=== PATIENT | male | born 1945 | race Caucasian/White ===

== ENCOUNTER → 2016-06-17 09:30 | Outpatient (CLI) | payer MEDICARE | END | disposition home or self-care (01) | LOC: D.CT 09:30 | DX: R91.1 Solitary pulmonary nodule (principal); R05 Cough ==

== ENCOUNTER → 2019-07-07 07:49 | Outpatient (CLI) | payer BC ==
--- NOTE | ~2019-07-07 | ST ---
PATIENT:CARLOS ARANGO MEDICAL RECORD: [id number] SEX: M LOCATION:[facility] ORDER #: ADMISSION DATE: 07/07/19 AGE OF PATIENT: 73 REFERRING PHYSICIAN: INTERPRETING PHYSICIAN: JUSTYN BARON MD DATE OF SERVICE: 07/07/2019 PROCEDURE: Nuclear stress test. INDICATION: Angina, shortness of breath, and paroxysmal atrial fibrillation. He was exercised on standard Lexiscan protocol with 33 mCi of sestamibi injected at peak stress, 11 mCi used previously for rest images. FINDINGS: Gated SPECT reveals a decreased ejection fraction of 43% with decreased thickening and brightening throughout the inferior segments. SPECT imaging Cardiolite was used as myocardial perfusion agent. There is a mixed perfusion defect inferiorly and apically, it is partially fixed, partially reversible, but there is reversibility throughout the entire inferior and apical segments that includes the basal, mid, apical, inferior segments as well as the apex itself. OVERALL IMPRESSION: This is an abnormal nuclear stress test with intermediate risk with reversible ischemia inferiorly and apically suggestive of hemodynamically significant coronary artery disease. TRANSINT:[id number] Voice Confirmation ID: [id number] DOCUMENT ID: [id number] JUSTYN BARON MD CC: PONCHO BUTCHER MD [id number] DICTATION DATE: 07/08/19 1254 NOUGAT CUTTER MACHINE: 07/08/192111 DEP CLI 07/07/19 [id number] [place] [address]
--- NOTE | 2019-07-08 13:17 | EC ---
PATIENT:CARLOS ARANGO DATE OF SERVICE: 07/07/19 SEX: M MEDICAL RECORD: [id number] DATE OF : 49 LOCATION:[facility] AGE OF PATIENT: 73 ADMISSION DATE: 07/07/19 REFERRING PHYSICIAN: INTERPRETING PHYSICIAN: JUSTYN JULIEN MD ECHOCARDIOGRAM REPORT ECHO CHARGES 4 ECHO COMPLETE Date: 07/07/19 CLINICAL DIAGNOSIS: SYKES H/O A-FIB ECHOCARDIOGRAPHIC MEASUREMENTS (adult normal given) AC root (d.<3.7cm) 3.6 cm LV Septum d (<1.2 cm> 1.2 cm Valve Excursion 2.0 cm LV Septum (systole) 1.8 cm Left Atria (s.<4.0cm> 5.3 cm LVPW d(<1.2cm) 1.2 cm RV (d.<2.3cm) 2.7 cm LVPW (sytole) 1.7 cm LV diastole(<5.6CM) 6.3 cm MV E-F(>70mm/sec) cm LV systole 4.4 cm LVOT Diameter 2.0 cm MV exc.(>10mm) cm Est.ejection fraction (50-75%) % DOPPLER: LVIT cm/sec A 49.0 cm/sec E 65.0 cm/sec LA cm/sec RVSP 40.0 mmHg LVOT 61.0 cm/sec AOP1/2T m/s Asc. Ao 122 cm/sec RVOT 46.0 cm/sec RA cm/sec PA 64.0 cm/sec AV Gradient Peak 5.9 mmHg AV Mean 3.1 mmHg AV Area 1.7 cm MV Gradient Peak 2.5 mmHg MV Mean 0.92 mmHg MV Area cm COMMENTS: OP - HC Animal Cytologist: 1 LAURIE TAMPA Import/Export Administrator: 1 Dr. Julien TAPE# PACS Pericardial Effusion N DATE OF SERVICE: ECHOCARDIOGRAM FINDINGS: 1. Left ventricular chamber size is mildly dilated. Left ventricular systolic function is preserved at 55% to 60%. 2. Left atrium is enlarged at 5.3 cm. Right atrium and right ventricular chamber sizes are as well mildly dilated. 3. Valvular structures have normal structure and motion. ECHOCARDIOGRAM REPORT [id number] CARLOS ARANGO 4. Doppler interrogation reveals mild aortic insufficiency, moderate mitral regurgitation, trace tricuspid regurgitation, no other valvular insufficiency or stenosis. Pulmonary systolic pressure estimated at 40 mmHg. 5. No evidence of pericardial effusion or left ventricular thrombus. TRANSINT:[id number] Voice Confirmation ID: [id number] DOCUMENT ID: [id number] JUSTYN JULIEN MD at 1317 CC: [id number] DICTATION DATE: 07/08/19 1106 TECHNOLOGY TRAINER: 07/08/19 1302 DEP CLI 07/07/19 [id number] [place] [address]
== END | disposition home or self-care (01) ==
LOC: D.HCCECHO 07:49
PROVIDERS: ATTEND Internal Medicine Interventional Cardiology
DX: I48.91 Unspecified atrial fibrillation (principal); I25.10 Atherosclerotic heart disease of native coronary artery without angina pectoris

== ENCOUNTER 2019-07-19 11:05 | Outpatient (CLI) | payer BC ==
[~2019-07-19] VITALS: Ht 167.6 cm; Wt 69.4 kg
--- NOTE | ~2019-07-19 | OP ---
PATIENT NAME: CARLOS ARANGO MEDICAL RECORD: [id number] :49 LOCATION:[facility] ADMISSION DATE: SURGEON: AURELIA JAMES MD DATE OF OPERATION: 07/19/2019 PROCEDURE: Left heart catheterization, selective coronary angiography, right radial approach. CATHETERS: Radial sheath, [place] catheter. The procedure was well tolerated. The patient returned to lyn. Sheath was removed. TR band was placed. FINDINGS: Left ventriculography in 30-degree LOWE view shows global hypokinesis with reduced EF 20% to 25%. CORONARY ANATOMY: LEFT MAIN: Left main is free of disease. LAD: Has about 70% stenosis in its distal third. CIRCUMFLEX: This is a left dominant system with the left giving rise to PDA, OM2 has a tight stenosis of 90% somewhat diffuse. RIGHT CORONARY ARTERY: Has about 70% to 80% stenosis; however, this is a rudimentary vessel. ASSESSMENT AND PLAN: Intervention to the OM momentarily. DESCRIPTION OF PROCEDURE: Using indwelling sheath, XB LAD guiding catheter provided excellent guide catheter support followed by 300 cm. A [place] wire was placed across the tightly occluded OM down this portion of vessel. Pre-deployment balloon used was 2.5 x 15 [place] balloon up to 8 atmospheres. The stent deployed was a 3.0 x 18 mm Integrity nondrug eluting stent to 14 atmospheres. Final angiography shows excellent resolution of 90% stenosis, no significant residual. BRANDON flow was 3 throughout the procedure. Heparin and Integrilin were used during the case. Plavix was loaded in the lab. He will be restarted back on his Xarelto. I suspect his myopathy may be tachycardia mediated and would proceed with cardioversion before intervention of the LAD, addition of Aldactone, Plavix and digoxin right now. We will need statin at a later date. TRANSINT:[id number] Voice Confirmation ID: [id number] DOCUMENT ID: [id number] AURELIA JAMES MD CC: [id number] DICTATION DATE: 07/19/19 1459 COMBER FIXER: 07/19/19 2310 DEP CLI 07/19/19 [facility] [address] [id number]
--- NOTE | ~2019-07-19 | HEMODYNAMI ---
PATIENT:CARLOS ARANGO MEDICAL RECORD: [id number] : 49 LOCATION:[facility] ADMISSION DATE: 07/19/19 Generatedon:07/19/201914:59 Patient name: CARLOS ARANGO Patient #: [id number] SSN: : 1945 Date of study: 07/19/2019 Page: Of Hemodynamic Procedure Report Patient Data Patient Demographics Procedure consent was obtained First Name: CARLOS Gender: Male Last Name: CONCHITA : 1945 Patient #: [id number] Age: 73 year(s) Race: Unknown Additional ID: [id number] Contact details [address]: [address] [place] [address] State: [place] City: [place] Zip code: [address] Past Medical History Performed procedures and imaging results Date Procedure Procedure Results Comments Stress testing Positive->Intermediate with SPECT MPI risk Allergies: No known allergies Admission Admission Data Admission Date: 07/19/2019 Admission Time: 11:05 Arrival Date: 07/19/2019 Arrival Time: 0:00 Height (in.): 65.75 BSA: 1.78 (m2) Height (cm.): 167 BMI: 24.74 (kg/m2) Weight (lbs.): 152.12 Weight (kg.): 69 Lab Results Lab Result Date: 07/19/2019 Lab Result Time: 0:00 Biochemistry Name Units Result Min Max BUN mg/dl 20 --(----)*- 7 18 Creatinine mg/dl 0.9 --(-*--)-- 0.6 1.3 eGFR ml/min 88.77126 -*(----)-- 90 120 NONAFRICAN CBC Name Units Result Min Max Hematocrit % 46 --(-*--)-- 42 54 Hemoglobin g/dl 15.1 --(-*--)-- 13.5 17.5 Procedure Procedure Types Cath Procedure Diagnostic Procedure [facility] w/Coronaries Sedation Charges Moderate Sedation up to 30 minutes PCI Procedure Coronary Stent Coronary Stent Initial Hemochron ACT Test Procedure Description Procedure Date Procedure Date: 07/19/2019 Procedure Start Time: 14:20 Procedure End Time: 14:57 Procedure Staff Name Function Karson Buitrago MD Performing Physician Lito Sanders RN Nurse Jim Muhammad RT Scrub Marry Montenegro RT Monitor Indication Atrial fibrillation Procedure Data Cath Procedure Fluoroscopy Diagnostic fluoroscopy Total fluoroscopy Time: 14 time: 14 min min Diagnostic fluoroscopy Total fluoroscopy dose: dose: 1128 mGy 1128 mGy Contrast Material Contrast Material Type Amount (ml) Isovue 300 101 Entry Location Entry Primary Successful Side Size Upsize Upsize Entry Closure Medrano ccessful Closure Location (Fr) 1 (Fr) 2 (Fr) Remarks Device Remarks Radial Right 6 Fr Mechanical artery Short Compression Estimated blood loss: 10 ml Diagnostic catheters Device Type Used For End Catheter Placement DIAGNOSTIC [place] 110cm 5 Procedure Fr catheter ([id number]) Procedure Complications No complications Procedure Medications Medication Administration Route Dosage Oxygen etCO2 Nasal cannula 2 l/min Heparin Flush Bag added to field 2 bags (1000units/500ml NS) Lidocaine 2% added to field 20 Radial Cocktail added to field 1 syringe (Verapamil 2mg/Nitro 400mcg/Heparin 1500units) Fentanyl I.V. 50 mcg Versed I.V. 1 mg Fentanyl I.V. 50 mcg Versed I.V. 1 mg Radial Cocktail I.A. 1 syringe (Verapamil 2mg/Nitro 400mcg/Heparin 1500units) Heparin Bolus I.V. 4000 units Digoxin I.V. 0.5 mg Integrilin (Bolus I.V. 6.2 ml 2mg/ml) Integrilin (Bolus wasted 3.8 ml 2mg/ml) Fentanyl I.V. 50 mcg Plavix P.O. 600 mg Hemodynamics Rest BSA: 1.78 (m2) HGB: 15.1 (g/dl) O2 Consumption: Estimated: 245.47 (ml/min) O2 Co nsumption indexed: Estimated:137.9 (ml/min/m) Heart Rate: 129 (bpm) Pressure Samples Time Site Value (mmHg) Purpose Heart Use Rate(bpm) 14:23 LV 87/38,14 Snapshot 159 14:23 LV 82/29,15 Snapshot 151 Gradients Valve Time Site Site Mean SEP/DFP Peak To Heart Use 1 2 (mmHg) (sec/min) Peak Rate (mmHg) (bpm) Aortic 14:23 LV AO 145 Snapshots Pre Cath Intra NCS Post Cath Vital Signs Time Heart Resp SPO2 etCO2 NIBP (mmHg) Rhythm Pain Sedation Rate (ipm) (%) (mmHg) Status Level (bpm) 14:08:14 123 16 97 20.2 94/83(91) A-Fib 0 (11) 10(A) , No pain 14:13:00 107 16 97 32.2 104/79(98) A-Fib 0 (11) 10(A) , No pain 14:17:00 149 17 95 0 110/81(92) A-Fib 0 (11) 10(A) , No pain 14:21:02 161 16 95 0 101/72(85) A-Fib 0 (11) 9(A) , No pain 14:25:03 147 17 93 0 106/68(95) A-Fib 0 (11) 9(A) , No pain 14:29:01 141 17 94 0 115/87(110) A-Fib 0 (11) 9(A) , No pain 14:33:07 151 16 96 0 106/75(98) A-Fib 0 (11) 9(A) , No pain 14:37:06 138 16 95 0 99/78(88) A-Fib 0 (11) 9(A) , No pain 14:41:04 136 16 96 0 113/79(99) A-Fib 0 (11) 9(A) , No pain 14:45:04 130 17 98 0.7 97/87(92) A-Fib 0 (11) 9(A) , No pain 14:48:59 107 16 96 0 100/81(92) A-Fib 0 (11) 9(A) , No pain 14:52:53 116 16 97 24.7 109/93(99) A-Fib 0 (11) 9(A) , No pain Medications Time Medication Route Dose Verified Delivered Reason Not es Effectiveness by by 14:10:06 Oxygen etCO2 2 l/min Karson Morse Per physician Nasal St Sukhdev Sanders RN cannula 14:10:16 Heparin Flush added 2 bags Karson Morse used for Bag to [facility] Sukhdev Sanders RN procedure (1000units/500ml field CHUNG NS) 14:10:25 Lidocaine 2% added 20ml Karson Morse for local to vial St Sukhdev Sanders RN anesthetic field CHUNG 14:10:39 Radial Cocktail added 1 Karson Lito used for (Verapamil to syringe [facility] Sukhdev Sanders RN procedure 2mg/Nitro field CHUNG 400mcg/Heparin 1500units) 14:14:39 Fentanyl I.V. 50 mcg Karson Claytony for sedation St Sukhdev Sanders RN, MD 14:14:46 Versed I.V. 1 mg Karson Lito for sedation St Sukhdev Sanders RN, MD 14:16:50 Fentanyl I.V. 50 mcg Karson Claytony for sedation [facility] Sukhdev Sanders RN, MD 14:16:53 Versed I.V. 1 mg Karson Lito for sedation St Sukhdev Sanders RN, MD 14:20:42 Radial Cocktail I.A. 1 Karson Karson for (Verapamil syringe [place] [facility] vasodilation 2mg/Nitro MD CHUNG 400mcg/Heparin 1500units) 14:29:37 Heparin Bolus I.V. 4000 K[address] for units [facility] Sukhdev Sanders RN anticoagulation 14:29:53 Digoxin I.V. 0.5 mg Karson Morse Per physician St Sukhdev Sanders RN, MD 14:32:06 Integrilin I.V. 6.2 ml Karson Morse for (Bolus 2mg/ml) St Sukhdev Sanders RN anticoagulation 14:35:25 Integrilin wasted 3.8 ml Karson Morse for (Bolus 2mg/ml) [facility] Sukhdev Sanders RN anticoagulation 14:43:56 Fentanyl I.V. 50 mcg Karson Morse for sedation St Sukhdev Sanders RN, MD 14:54:33 Plavix P.O. 600 [address] for [facility] Sukhdev Sanders RN antiplatelet therapy Procedure Log Time Note 13:50:58 Informed consent obtained and on chart 13:51:46 Procedure Status Elective Heart Cath (OP). 13:51:47 Lito Sanders RN sent for patient. Start room use. 13:51:48 Time tracking: Regular hours (M-F 7:00 - 5:00) 13:51:51 Plan of Care:Hemodynamics will remain stable., Cardiac rhythm will remain stable., Comfort level will be maintained., Respiratory function will remain adequate., Patient/ family verbilizes understanding of procedure., Procedure tolerated without complication., Recovers from procedure without complications.. 13:52:02 H&P Date Dictated: 06/27/2019 Within 30 days and on chart., H&P Addendum completed by physician on day of procedure. (MUST COMPLETE FOR ALL OUTPATIENTS). 13:52:10 Patient allergic to No known allergies 13:53:52 Lab Result : BUN 20 mg/dl 13:53:52 Lab Result : Creatinine 0.9 mg/dl 13:53:52 Lab Result : eGFR NONAFRICAN 88.15811 ml/min 13:53:52 Lab Result : Hemoglobin 15.1 g/dl 13:53:52 Lab Result : Hematocrit 46 % 13:54:09 Stress Test: yes; abnormal INFERIOR AND APICALLY 13:54:23 Patient Weight : 152.12 lbs 13:54:25 Patient Height : 65.75 inches 13:54:29 Arrival Date: 07/19/2019 12:00:00 AM 13:56:33 Indication : Atrial fibrillation 14:07:17 Patient received from Pre/Post Procedure Room to CCL 1 Alert and oriented. Tansferred to table in Supine position. 14:07:18 Warm blankets applied, and feliberto hugger turned on for patient comfort. 14:07:18 Correct patient and procedure confirmed by team. 14:07:19 ECG and BP/O2 sat monitors applied to patient. 14:07:20 Vital chart was started 14:07:24 Rhythm: atrial fibrillation 14:07:25 Full Disclosure recording started 14:07:25 Pre-procedure instructions explained to patient. 14:07:26 Pre-op teaching completed and patient verbalized understanding. 14:07:27 Family unavailable. 14:07:31 Patient NPO since Midnight. 14:07:33 Is the patient allergic to Iodine/contrast media? No. 14:07:34 Is patient on blood thinner?Yes 14:07:49 PT. STATES LAST DOSE OF XARELTO A FEW DAYS AGO 14:07:51 Patient diabetic? No. 14:07:55 Previous problem with sedation/anesthesia? No ? 14:08:12 Snore? Yes 14:08:14 Sleep apnea? No 14:08:14 Deviated septum? No 14:08:15 Opens mouth fully? Yes 14:08:16 Sticks out tongue? Yes 14:08:55 Airway obstruction? No ? 14:08:58 Dentures? Yes OUT 14:09:00 Pre procedure: right dorsailis pedis pulse 1+ Palpable, but thready & weak; easily obliterated 14:09:02 Modified Jose's test Ulnar < 7 seconds 14:09:07 Patient pain scale 0/10 ?. 14:09:11 IV patent on arrival in left hand with 0.9% NaCl at [facility]. 14:09:13 Lab results completed and on chart. 14:09:18 Right Radial & Right Groin area was prepped with chlora-prep and draped in sterile fashion 14::19 Sharps counted by scrub and verified by R.N. 14:: Alarms reviewed by R. N. 14:10:06 Oxygen 2 l/min etCO2 Nasal cannula was administered by Lito Sanders RN; Per physician; Verbal order read back and verified. 14:10:16 Heparin Flush Bag (1000units/500ml NS) 2 bags added to field was administered by Lito Sanders RN; used for procedure; Verbal order read back and verified. 14:10:25 Lidocaine 2% 20ml vial added to field was administered by Lito Sanders RN; for local anesthetic; Verbal order read back and verified. 14:10:39 Radial Cocktail (Verapamil 2mg/Nitro 400mcg/Heparin 1500units) 1 syringe added to field was administered by Lito Sanders RN; used for procedure; Verbal order read back and verified. 14:11:19 Use device set Radial Dx or PCI 14:11:20 ACIST Syringe (24906) opened to sterile field. 14:11:20 Medline Cath Pack ([id number]) opened to sterile field. 14:11:21 Bag Decanter () opened to sterile field. 14:11:22 ACIST Hand Control (98494) opened to sterile field. 14:11:22 ACIST Manifold (29011) opened to sterile field. 14:11:22 Tegaderm 4 x 4 (1626W) opened to sterile field. 14:11:23 MBrace Wrist Support ([id number]) opened to sterile field. 14:11:24 EMERALD Guide Wire (897-653) opened to sterile field. 14:11:25 SHEATH 6FR RAIN (3452026) opened to sterile field. 14:11:31 Baseline sample Acquired. 14:13:21 --------ALL STOP TIME OUT------ 14:13:22 Final Timeout: patient, procedure, and site verified with staff and physician. All members of the team are in agreement. 14:13:23 Right Radial & Right Groin site verified by team. 14:13:26 Fire Safety Assessment: A--An alcohol-based skin anteseptic being used preoperatively., C--Open oxygen or nitrous oxide is being used., D--An ESU, laser, or fiber-optic light is being used. 14:13:31 Physical assessment completed. ASA score P 2 - A patient with mild systemic disease as per Karson Buitrago MD. 14:13:34 2) 60-89 Mildly reduced kidney function, and other findings (as for stage 1) point to kidney disease. 14:13:37 Maximum allowable contrast dose (3.7 X eGFR X 0.75)244 ml. 14:13:39 Sedation plan: IV Moderate Sedation Medication:Versed, Fentanyl 14:14:39 Fentanyl 50 mcg I.V. was administered by Lito Sanders RN; for sedation; Verbal order read back and verified. 14:14:46 Versed 1 mg I.V. was administered by Lito Sanders RN; for sedation; Verbal order read back and verified. 14:16:50 Fentanyl 50 mcg I.V. was administered by Lito Sanders RN; for sedation; Verbal order read back and verified. 14:16:53 Versed 1 mg I.V. was administered by Lito Sanders RN; for sedation; Verbal order read back and verified. 14:16:54 Zero performed for pressure channel P1 14:19:55 Zero performed for pressure channel P1 14:20:01 Procedure started. 14:20:07 Local anesthetic to right radial artery with Lidocaine 2% by Karson Buitrago MD.INITIAL ACCESS ONLY 14:20:42 Radial Cocktail (Verapamil 2mg/Nitro 400mcg/Heparin 1500units) 1 syringe I.A. was administered by Karson Buitrago MD; for vasodilation; Verbal order read back and verified. 14:20:47 A 6 Fr Short sheath was inserted into the Right Radial artery 14:21:17 A DIAGNOSTIC [place] 110cm 5 Fr catheter ([id number]) was advanced over the wire and used for Procedure. 14:22:47 LV gram done using LOWE 14:22:49 Injector settings: Ml/sec: 5, Volume: 15, 14:23:14 LV hemodynamics recorded. 14:23:27 EF : 25 % 14:23:54 RCA angiography performed. 14:26:12 LCA angiography performed. 14:: Catheter exchanged over wire. 14::38 Proceeding to intervention. 14:29:25 GUIDE 6FR XBLAD 3.5 catheter ([id number]) opened to sterile field. 14:29:25 WHISPER 300cm guide wire ([id number]) opened to sterile field. 14:29: INFLATOR Merit BasixCompak (UI0397) opened to sterile field. 14:29:37 Heparin Bolus 4000 units I.V. was administered by Lito Sanders RN; for anticoagulation; Verbal order read back and verified. 14:29:45 Pre PCI Site: [place] [facility] has 90% stenosis. 14:29:50 6 Fr XBLAD 3.5 guide catheter was inserted over the wire 14::53 Digoxin 0.5 mg I.V. was administered by Lito Sanders RN; Per physician; Verbal order read back and verified. 14:31:04 ACC Pre-intervention BRANDON Flow is 2. 14:31:20 WHISPER 300 wire advanced. 14:32:06 Integrilin (Bolus 2mg/ml) 6.2 ml I.V. was administered by Lito Sanders RN; for anticoagulation; Verbal order read back and verified. 14:35:25 Integrilin (Bolus 2mg/ml) 3.8 ml wasted was administered by Lito Sanders RN; for anticoagulation; Verbal order read back and verified. 14:39:14 UNABLE TO CROSS LESION WITH WHISPER. 14:39:25 Asahi Minamo 300cm wire opened to sterile field. 14:39:40 MINAMO 300 ADVANCED 14:43:56 Fentanyl 50 mcg I.V. was administered by Lito Sanders RN; for sedation; Verbal order read back and verified. 14:45:31 Wire advanced across lesion. 14:45:46 ACT drawn and resulted at OUT OF RANGE seconds. (normal therapeutic range 180-240 seconds). 14:46:31 Inflate balloon Inflation number: 1 A EMERGE OTW 2.5 x 15 balloon ([id number]) was prepped and advanced across the Mid CX , then inflated to 12 CLAYTON for 0:00 (min:sec) . 14:46:45 Balloon removed over the wire. 14:49:19 Place stent Inflation Number: 2 A INTEGRITY RX 3.0 x 18 stent ([id number]) was prepped and advanced across the Mid CX . The stent was deployed at 14 CLAYTON for 0:15 (min:sec) . 14:49:24 Stent catheter was removed intact over wire. 14:49:41 Wire removed. 14:49:42 Guide catheter removed. 14:49:46 TR BAND Standard ([id number]) opened to sterile field. 14:50:13 Sheath removed intact; hemostasis achieved with Mechanical Compression to the Right Radial artery. 14:50:21 Procedure ended.(Physican Out) 14:51:48 Fluoroscopy time 14.00 minutes. 14:51:53 Fluoroscopy dose: 1128 mGy 14:51:53 Flurop Dose total: 1128 14:52:03 Dose Area Product 30876 mGy/cm. 14:52:07 Contrast amount:Isovue 300 101ml. 14:52:10 Maximum allowable dose exceeded? No. 14:52:11 Sharps counted by scrub and verified by R.N. 14:52:13 [place] band inflated with 10cc of air. 14:52:17 Post-procedure physical assessment completed. ASA score P 2 - A patient with mild systemic disease as per Karson Buitrago MD. 14:52:20 Post procedure rhythm: atrial fibrillation 14:52:22 Estimated blood loss: 10 ml 14:52:23 Post procedure instruction explained to patient.Patient verbalizes understanding. 14:52:24 Patient needs reinforcement of post procedure teaching. 14:53:07 Procedure type changed to Cath procedure, Diagnostic procedure, [facility], [facility] w/Coronaries, Sedation Charges, Moderate Sedation up to 30 minutes, PCI procedure, Coronary Stent, Coronary Stent Initial, Hemochron ACT Test 14:54:33 Plavix 600 mg P.O. was administered by Lito Sanders RN; for antiplatelet therapy; Verbal order read back and verified. 14:54:34 Procedure and supply charges have been captured, reviewed, submitted and are correct. 14:54:36 Procedure Complication : No complications 14:54:40 Vital chart was stopped 14:54:42 [facility] Findings: MVD- PCI performed (see procedure note) 14:54:59 Operative report dictated upon procedure completion. 14:54:59 See physician's report for complete and final results. 14:57:29 Report given to Pre/Post Procedure Room. 14:57:38 Patient transfered to Pre/Post Procedure Room with Bed. 14:57:40 Procedure ended. 14:57:40 Full Disclosure recording stopped 14:58:01 ACC-PCI Only Patient was given prescriptions, or instructed by Karson Buitrago MD to start/continue the following medications upon discharge: Plavix 14:58:02 End room use (Document Last) 14:58:21 End room use (Document Last) 14:58:53 End room use (Document Last) Intervention Summary Intervention Notes Time ActionType Lesion and Equipment Action# Pressure Duration Attributes Used 14:46:31 Inflate Mid CX EMERGE OTW 1 12 00:00 balloon 2.5 x 15 balloon ([id number]) 14:49:19 Place stent Mid CX INTEGRITY RX 2 14 00:15 3.0 x 18 stent ([id number]) Device Usage Item Name Manufacture Quantity Catalog Number Hospital Part Current [facility] Lot# / Charge Number Stock Stock Serial# Code ACIST Acist 1 61328 719510 251131 285571 20 Syringe Medical (92218) Systems Inc Medline Cath Medline 1 [id number] 582613 88061 291038 5 Pack ([id number]) Bag Decanter Microtek 1 2002S 352529 59267 098165 5 (2002S) Medical Inc. ACIST Hand Acist 1 31432 551441 936096 961891 5 Control Medical (48090) Systems Inc ACIST Acist 1 98659 185533 664144 467374 5 Manifold Medical (50091) Systems Inc Tegaderm 4 x 3M 1 1626W 076588 383191 664169 5 4 (1626W) MBrace Wrist Advanced 1 140-0250-00 180219 87161 873665 5 Support Vascular (419881889) Dynamics EMERALD Cardinal 1 502-455 324790 053921 867635 5 Guide Wire Health (502-455) SHEATH 6FR Cardinal 1 2497943 079313 5314410 405640 5 [facility] (5038550) GUIDE 6FR Cardinal 1 28721263 635756 107590 195898 10 XBLAD 3.5 Health catheter (19214345) WHISPER Cheng 1 [id number] 649931 844795 669557 5 300cm guide Vascular wire (4000992KD) INFLATOR Merit 1 DC8513 714266 821795 646035 15 Merit Medical BasixCompak (XS7223) Michealhi Tonia Asahi Intecc 1 [id number] 163851 1878248 083065 0 300cm wire EMERGE OTW Jewell 1 [id number] 869200 844611 124587 5 [id number] 2.5 x 15 Scientific balloon ([id number]) DIAGNOSTIC Terumo 1 405013 629987 731797 340384 5 [place] 110cm 5 Fr catheter (716345) INTEGRITY RX Medtronic 1 [id number] 878724 176363 815960 5 [id number] 3.0 x 18 stent ([id number]) TR BAND Terumo 1 [id number] 102589 819609 756039 40 Standard ([id number]) Signature Audit Economy Stage Time Signature Unsigned Intra-Procedure 07/19/2019 Marry Montenegro 2:58:21 PM RT(R) Intra-Procedure 07/19/2019 Lito Sanders 2:58:53 PM RN Intra-Procedure 07/19/2019 Karson Harvey 2:59:11 PM Sukhdev [place]G [place] [id number] [place] [address]
[2019-07-19] MEDS ORDERED: XARELTO20 MG PO (12:05)
[2019-07-19] MEDS ORDERED: BETAPACE 80 MG80 MG PO (12:05)
[2019-07-19] MEDS ORDERED: ZANAFLEX4 MG PO (12:06)
[2019-07-19] MEDS ORDERED: NEURONTIN 300300 MG (12:06)
[2019-07-19] MEDS ORDERED: TEMAZEPAM30 MG PO (12:07)
[2019-07-19] MEDS ORDERED: ULTRAM50 MG PO (12:07)
[2019-07-19] MEDS ORDERED: LISINOPRIL5 MG PO (12:08)
[2019-07-19] MEDS ORDERED: OMEPRAZOLE20 M1 PO (12:08)
[2019-07-19 12:14] VITALS: BP 134/86; Ht 167.6 cm; Wt 69.4 kg
[2019-07-19 12:31] LABS: BASOPHILS 0.2 % (0-2); EOSINOPHILS 3.1 % (0-7); HEMOGLOBIN 15.1 g/dL (13.5-17.5); IMMATURE GRANULOCYTES 0.2 % (0-5); LYMPHOCYTES 24.7 % (15-50); MCH 27.2 pg (26.0-34.0); MCHC 32.8 g/dL (31.0-37.0); MCV 82.9 fL (80.0-100.0); MEAN PLATELET VOLUME 9.9 fL (7.4-10.4); MONOCYTES 7.2 % (2-11); NEUTROPHILS 64.6 % (40-80); PLATELET COUNT 313 10x3/uL (130-400); RBC 5.55 10x6/uL (4.20-6.10); RDW 13.9 % (11.5-14.5); WBC 8.6 10x3/uL (4.8-10.8)
[2019-07-19 12:43] LABS: ALT (SGPT) 17 U/L (10-68); CALC OSMOLALITY 281 mosm/kg (275-300); CALCIUM 8.7 mg/dL (8.5-10.1); CARBON DIOXIDE 23.9 mmol/L (21.0-32.0); CHLORIDE - SERUM 105 mmol/L (98-107); CHOL - HDL RATIO 3.7 ratio (2.3-4.9); CHOLESTEROL, TOTAL 156 mg/dL (0-200); CREATININE - SERUM 0.9 mg/dL (0.6-1.3); GLUCOSE 106 mg/dL (74-106); HDL CHOLESTEROL 42 mg/dL (32-96); LDL CHOLESTEROL 96 mg/dL (0-100); LDL-HDL RATIO 2.3 ratio (1.5-3.5); SODIUM 140 mmol/L (136-145); TRIGLYCERIDE 94 mg/dL (30-200); UREA NITROGEN 20 mg/dL (7-18); eGFR NON AFRICAN AMERICAN 88 mL/min (90-120)
--- NOTE | 2019-07-19 13:55 | NUR ---
R WRIST SITE CDI, NO S/S OF BLEEDING OR HEMATOMA, VSS. PT HAS WATER AT BS, DENIES OTHER NEEDS. ALARMS ON AND C/L IN REACH.
--- NOTE | 2019-07-19 15:10 | NUR ---
REC'D TO ROOM 1 VIA STRETCHER FROM LEGAL ASSISTANT. MONITORS ESTAB. PT AWAKE AND ORIENTED. SEE MEDICAL COST CONSULTANT.
[2019-07-19] MEDS ORDERED: LANOXIN125 MCG PO (15:21)
[2019-07-19] MEDS ORDERED: PLAVIX75 MG PO (15:21)
[2019-07-19] MEDS ORDERED: ALDACTONE25 MG PO (15:21)
--- NOTE | 2019-07-19 15:25 | NUR ---
R WRIST SITE C/D/I, NO S/S BLEEDING OR HEMATOMA. R HAND WARM, BRISK CAP REFILL. VSS. C/L IN REACH.
--- NOTE | 2019-07-19 15:55 | NUR ---
R WRIST SITE C/D/I. VSS. PT HAS WATER AT BS. DENIES OTHER NEEDS. ALARMS ON AND C/L IN REACH.
--- NOTE | 2019-07-19 16:25 | NUR ---
R WRIST CDI, CAP REFILL BRISK, RADIAL PULSE PALPABLE ABOVE AND BELOW BAND. BP 116/81, AFIB 95 W OCC PVC.
--- NOTE | 2019-07-19 16:55 | NUR ---
PT RESTING QUIETLY, R WRIST SITE C/D/I, NO S/S BLEEDING OR HEMATOMA. CM - AFIB, HR 90-110S.
--- NOTE | 2019-07-19 17:56 | NUR ---
5CC AIR SLOWLY REMOVED FROM Z BAND, NO S/S BLEEDING OR HEMATOMA. VSS PT GIVEN CRACKERS AND PUDDING PER REQUEST. C/L IN REACH.
--- NOTE | 2019-07-19 18:15 | NUR ---
R WRIST SITE C/D/I, NO S/S BLEEDING OR HEMATOMA. 7CC TOTAL REMOVED FROM Z BAND. PT AWARE OF S/S TO REPORT. C/L IN REACH.
--- NOTE | 2019-07-19 18:30 | NUR ---
ALL AIR REMOVED FROM Z BAND, NO S/S OF BLEEDING OR HEMATOMA.
--- NOTE | 2019-07-19 18:50 | NUR ---
R WRIST SITE C/D/I. PIV D/C'D INTACT, DSG APPLIED. PT ALLOWED UP TO GET DRESSED.
--- NOTE | 2019-07-19 19:00 | NUR ---
ALL DISCHARGE TEACHING REVIEWED WITH PT - EXTENSIVE TEACHING ON MEDICATION COMPLIANCE, RESTRICTIONS AT HOME AND FOLLOW-UP. PT D/C'D VIA W/C TO PRIVATE VEHICLE. I ALSO WENT OVER THESE WITH WHEN PT GOT IN CAR. PT HAS ALL BELONGINGS AND PAPERWORK.
== END 2019-07-19 19:10 | disposition home or self-care (01) ==
LOC: D.CATH 11:05
PROVIDERS: ATTEND Internal Medicine Interventional Cardiology
DX: R06.02 Shortness of breath (principal); R94.30 Abnormal result of cardiovascular function study, unspecified

== ENCOUNTER 2019-07-27 11:51 | Inpatient (IN) | payer MEDICARE ==
[~2019-07-27] VITALS: Ht 167.6 cm; Wt 68.0 kg
--- NOTE | ~2019-07-27 | HEMODYNAMI ---
PATIENT:CARLOS ARANGO MEDICAL RECORD: [id number] : [birth year] LOCATION:[facility] D.2116 [id number] ADMISSION DATE: 07/27/19 Generatedon:08/02/201914:57 Patient name: CARLOS ARANGO Patient #: [id number] : 1945 Date of study: 08/02/2019 Page: Of Hemodynamic Procedure Report Patient Data Patient Demographics Procedure consent was obtained First Name: CARLOS Gender: Male Last Name: CONCHITA : 1945 Patient #: [id number] Age: 74 year(s) Race: Unknown SSN: [id number] Additional ID: [id number] Contact details [address]: [address] [place] [address] State: [place] City: [place] Zip code: [address] Past Medical History Allergies: No known allergies Admission Admission Data Admission Date: 07/27/2019 Admission Time: 16:31 Arrival Date: 08/02/2019 Arrival Time: 0:00 Admit Source: Other Insurance Payor: Private Room #: D.2116 health insurance [facility] #: [id number] Height (in.): 66 BSA: 1.77 (m2) Height (cm.): 167.64 BMI: 24.26 (kg/m2) Weight (lbs.): 150.31 Weight (kg.): 68.18 Lab Results Lab Result Date: 08/02/2019 Lab Result Time: 0:00 Biochemistry Name Units Result Min Max BUN mg/dl 19 --(----)*- 7 18 Creatinine mg/dl 1.5 --(----)-* 0.6 1.3 eGFR ml/min 49 *-(----)-- 90 120 NONAFRICAN CBC Name Units Result Min Max Hemoglobin g/dl 10.7 *-(----)-- 13.5 17.5 Procedure Procedure Types Cath Procedure Diagnostic Procedure Sedation Charges Moderate Sedation up to 15 minutes PCI Procedure Coronary Stent Coronary Stent Initial Hemochron ACT Test Procedure Description Procedure Date Procedure Date: 08/02/2019 Procedure Start Time: 14:33 Procedure End Time: 14:54 Procedure Staff Name Function Karson Buitrago MD Performing Physician Alisha Hernandez RT Monitor Brian Trevino RN Nurse Geovanna Baker RT Scrub Procedure Data Cath Procedure Fluoroscopy Diagnostic fluoroscopy Total fluoroscopy Time: 3.1 time: 3.1 min min Diagnostic fluoroscopy Total fluoroscopy dose: 847 dose: 847 mGy mGy Contrast Material Contrast Material Type Amount (ml) Isovue 300 70 Entry Location Entry Primary Successful Side Size Upsize Upsize Entry Closure Succes sful Closure Location (Fr) 1 (Fr) 2 (Fr) Remarks Device Remarks Femoral Right 6 Fr Exoseal artery Short Estimated blood loss: 10 ml Procedure Complications No complications Procedure Medications Medication Administration Route Dosage 0.9% NaCl I.V. 100 ml/hr Oxygen etCO2 Nasal cannula 2 l/min Heparin Flush Bag added to field 2 bags (1000units/500ml NS) Lidocaine 2% added to field 20 Plavix P.O. 600 mg Versed I.V. 1 mg Fentanyl I.V. 50 mcg Heparin Bolus I.V. 5000 units Integrilin (Bolus I.V. 6.2 ml 2mg/ml) Integrilin (Bolus wasted 3.8 ml 2mg/ml) Versed I.V. 1 mg Fentanyl I.V. 50 mcg Hemodynamics Rest BSA: 1.77 (m2) O2 Consumption: Estimated: 206.35 (ml/min) O2 Consumption indexed : Estimated:116.58 (ml/min/m) Heart Rate: 73 (bpm) Snapshots Pre Cath Intra NCS Post Cath Vital Signs Time Heart Resp SPO2 etCO2 NIBP (mmHg) Rhythm Pain Sedation Rate (ipm) (%) (mmHg) Status Level (bpm) 14:27:17 67 20 98 13.6 160/89(142) NSR 0 (11) 10(A) , No pain 14:31:31 70 40 98 0 155/95(133) NSR 0 (11) 10(A) , No pain 14:35:45 69 26 97 0 152/90(132) NSR 0 (11) 10(A) , No pain 14:39:59 74 20 96 0 149/93(139) NSR 0 (11) 10(A) , No pain 14:44:03 68 19 90 0 83/59(70) NSR 0 (11) 10(A) , No pain 14:48:41 88 20 92 0 176/116(163) NSR 0 (11) 10(A) , No pain 14:52:45 75 20 95 0 154/93(140) NSR 0 (11) 10(A) , No pain Medications Time Medication Route Dose Verified Delivered Reason Notes Effectiveness by by 14:25:29 0.9% NaCl I.V. 100 Brian Brian Per physician ml/hr Uriel Trevino RN RN 14:25:39 Oxygen etCO2 2 Brian Brian for low 02 sats Nasal l/min Uriel Trevino cannula RN RN 14:25:50 Heparin Flush added 2 Brian Brian used for Bag to bags Uriel Trevino procedure (1000units/500ml RN RN NS) 14:25:59 Lidocaine 2% added 20ml Brian Brian for local to vial Uriel Trevino anesthetic RN RN 14:26:17 Plavix P.O. 600 Brian Brian for mg Uriel Trevino antiplatelet RN RN therapy 14:33:44 Versed I.V. 1 mg Brian Brian for sedation Uriel Trevino RN RN 14:33:52 Fentanyl I.V. 50 Brian Brian for sedation mcg Uriel Trevino RN RN 14:38:42 Heparin Bolus I.V. 5000 Brian Brian for units Uriel Trevino anticoagulation RN RN 14:38:59 Integrilin I.V. 6.2 Brian Brian for (Bolus 2mg/ml) ml Uriel Trevino antiplatelet RN RN therapy 14:39:10 Integrilin wasted 3.8 Brian Brian to sharp's (Bolus 2mg/ml) ml Uriel Trevino RN RN 14:47:46 Versed I.V. 1 mg Brian Brian for sedation Uriel Trevino RN RN 14:47:51 Fentanyl I.V. 50 Brian Brian for sedation mcg Uriel Trevino RN box maker Log Time Note 14:00:10 Admit Source: Other 14:00:13 Arrival Date: 08/02/2019 12:00:00 AM 14:00:41 Insurance Payor : Private health insurance 14:00:48 Patient Height : 66 inches 14:00:58 Patient Weight : 150.31 lbs 14:02:51 Lab Result : Hemoglobin 10.7 g/dl 14::51 Lab Result : eGFR NONAFRICAN 49 ml/min 14::51 Lab Result : BUN 19 mg/dl 14::51 Lab Result : Creatinine 1.5 mg/dl 14:03:35 Diagnostic Cath Status : Urgent 14:04:06 Procedure Status Urgent Heart Cath (IP). 14:04:08 Brian Trevino RN sent for patient. Start room use. 14:04:10 Time tracking: Regular hours (M-F 7:00 - 5:00) 14:04:15 Plan of Care:Hemodynamics will remain stable., Cardiac rhythm will remain stable., Comfort level will be maintained., Respiratory function will remain adequate., Patient/ family verbilizes understanding of procedure., Procedure tolerated without complication., Recovers from procedure without complications.. 14:09:37 Patient received from Med/Surg to CCL 2 Alert and oriented. Tansferred to table in Supine position. 14:09:39 Signed procedure consent form obtained from patient. 14:09:40 Warm blankets applied, and feliberto hugger turned on for patient comfort. 14:09:41 Correct patient and procedure confirmed by team. 14:09:42 ECG and BP/O2 sat monitors applied to patient. 14:09:56 H&P Date Dictated: 07/27/2019 Within 30 days and on chart., H&P Addendum completed by physician on day of procedure. (MUST COMPLETE FOR ALL OUTPATIENTS). 14:09:58 Pre-procedure instructions explained to patient. 14:10:00 Family unavailable. 14:10:02 Patient NPO since Midnight. 14:10:07 Patient allergic to No known allergies 14:10:10 Is the patient allergic to Iodine/contrast media? No. 14:20:33 Is patient on blood thinner?Yes 14:20:36 ACC The patient was administered the following blood thiners within the last 24 hours: ACCPlavix 14:20:39 Patient diabetic? No. 14:20:44 Snore? No 14:20:45 Sleep apnea? No 14:21:19 Dentures? No ? 14:21:29 IV patent on arrival in left forearm with 0.9% NaCl at KVO. 14:21:33 Lab results completed and on chart. 14:21:40 Right groin area was prepped with chlora-prep and draped in sterile fashion 14::42 Alarms reviewed by REric N. 14:21:42 Sharps counted by scrub and verified by R.N. 14:21:43 Physician arrived 14:21:44 --------ALL STOP TIME OUT------ 14:21:45 Final Timeout: patient, procedure, and site verified with staff and physician. All members of the team are in agreement. 14:21:48 Right groin site verified by team. 14:21:54 Fire Safety Assessment: A--An alcohol-based skin anteseptic being used preoperatively., C--Open oxygen or nitrous oxide is being used., D--An ESU, laser, or fiber-optic light is being used. 14:21:58 Physical assessment completed. ASA score P 3 - A patient with severe systemic disease as per Karson Buitrago MD. 14:22:02 3a) 45-59 Moderately reduced kidney function. 14:22:07 Maximum allowable contrast dose (3.7 X eGFR X 0.75)136 ml. 14:22:12 Sedation plan: IV Moderate Sedation Medication:Versed, Fentanyl 14:22:15 Use device set Femoral Dx 14:22:51 INFLATOR Merit BasixCompak ([id number]) opened to sterile field. 14:22:51 WHISPER 300cm guide wire ([id number]) opened to sterile field. 14:22:52 SHEATH 6FR Ard[place] (GUO557) opened to sterile field. 14:22:52 EMERALD Guide Wire (502-509) opened to sterile field. 14:22:55 Tegaderm 4 x 4 (1626W) opened to sterile field. 14:23:00 ACIST Syringe (75890) opened to sterile field. 14:23:00 Bag Decanter (2002) opened to sterile field. 14:23:01 Medline Cath Pack ([id number]) opened to sterile field. 14:23:03 ACIST Hand Control (79933) opened to sterile field. 14:23:04 ACIST Manifold (54616) opened to sterile field. 14:25:15 GUIDE 6FR XBLAD 3.5 catheter ([id number]) opened to sterile field. 14:25:29 0.9% NaCl 100 ml/hr I.V. was administered by Brian Trevino RN; Per physician; Verbal order read back and verified. 14:25:39 Oxygen 2 l/min etCO2 Nasal cannula was administered by Brian Trevino RN; for low 02 sats; Verbal order read back and verified. 14:25:50 Heparin Flush Bag (1000units/500ml NS) 2 bags added to field was administered by Brian Trevino RN; used for procedure; Verbal order read back and verified. 14:25:59 Lidocaine 2% 20ml vial added to field was administered by Brian Trevnio RN; for local anesthetic; Verbal order read back and verified. 14::07 Vital chart was started 14:26:17 Plavix 600 mg P.O. was administered by Brian Trevino RN; for antiplatelet therapy; Verbal order read back and verified. 14::07 Baseline sample Acquired. 14:29:08 Full Disclosure recording started 14:32:48 Procedure started. 14:33:12 Local anesthetic to right femoral artery with Lidocaine 2% by Karson Buitrago MD.INITIAL ACCESS ONLY 14:33:20 A 6 Fr Short sheath was inserted into the Right Femoral artery 14:33:31 Zero performed for pressure channel P1 14:33:36 Zero performed for pressure channel P1 14:33:44 Versed 1 mg I.V. was administered by Brian Trevino RN; for sedation; Verbal order read back and verified. 14:33:52 Fentanyl 50 mcg I.V. was administered by Brian Trevino RN; for sedation; Verbal order read back and verified. 14:34:59 6 Fr xblad3.5 guide catheter was inserted over the wire 14:37:26 whisper wire advanced. 14:38:42 Heparin Bolus 5000 units I.V. was administered by Brian Trevino RN; for anticoagulation; Verbal order read back and verified. 14:38:59 Integrilin (Bolus 2mg/ml) 6.2 ml I.V. was administered by Brian Trevino RN; for antiplatelet therapy; Verbal order read back and verified. 14:39:10 Integrilin (Bolus 2mg/ml) 3.8 ml wasted was administered by Brian Trevino RN; to sharp's; Verbal order read back and verified. 14:41:32 Place stent Inflation Number: 1 A INTEGRITY RX 3.0 x 30 stent ([id number]) was prepped and advanced across the Dist LAD 90. The stent was deployed at 14 CLAYTON for 0:11 (min:sec) . 14:42:32 EXOSEAL 6Fr (EX600) opened to sterile field. 14:46:02 Place stent Inflation Number: 2 A INTEGRITY RX 3.0 x 18 stent ([id number]) was prepped and advanced across the Dist LAD 90. The stent was deployed at 14 CLAYTON for 0:19 (min:sec) 0. 14:47:46 Versed 1 mg I.V. was administered by Brian Trevino RN; for sedation; Verbal order read back and verified. 14:47:51 Fentanyl 50 mcg I.V. was administered by Brian Trevino RN; for sedation; Verbal order read back and verified. 14:48:17 Inflation number: 3 The stent balloon was then re-inflated across the Dist LAD 0 to 4 CLAYTON for 0:18 (min:sec) . 14:49:38 Wire removed. 14:49:40 Guide catheter removed. 14:50:27 Sheath removed intact; hemostasis achieved with Exoseal to the Right Femoral artery. 14:50:29 Procedure ended.(Physican Out) 14:50:41 Fluoroscopy time 03.10 minutes. 14:50:47 Fluoroscopy dose: 847 mGy 14:50:47 Flurop Dose total: 847 14:50:52 Dose Area Product 08587 mGy/cm. 14:51:33 Contrast amount:Isovue 300 70ml. 14:51:37 Maximum allowable dose exceeded? No. 14:51:38 Sharps counted by scrub and verified by R.N. 14:51:39 Insertion/operative site no bleeding no hematoma. 14:51:45 Post left femerol artery:stable 14:51:52 Post-procedure physical assessment completed. ASA score P 3 - A patient with severe systemic disease as per Karson Buitrago MD. 14:51:54 Post procedure rhythm: unchanged. 14:51:58 Estimated blood loss: 10 ml 14:52:00 Post procedure instruction explained to patient.Patient verbalizes understanding. 14:52:17 Procedure type changed to Cath procedure, Diagnostic procedure, Sedation Charges, Moderate Sedation up to 15 minutes, PCI procedure, Coronary Stent, Coronary Stent Initial, Hemochron ACT Test 14:52:53 Procedure and supply charges have been captured, reviewed, submitted and are correct. 14:53:23 Procedure Complication : No complications 14:53:25 Vital chart was stopped 14:53:28 [facility] Findings: MVD- PCI performed (see procedure note) 14:53:30 See physician's report for complete and final results. 14:53:32 Report given to [facility]. 14:54:00 Patient transfered to [facility] with Bed. 14:54:10 Procedure ended. 14:54:10 Full Disclosure recording stopped 14:54:25 ACC-PCI Only Patient was given prescriptions, or instructed by Karson Buitrago MD to start/continue the following medications upon discharge: Plavix 14:54:27 End room use (Document Last) 14:55:20 ACT drawn and resulted at 250 seconds. (normal therapeutic range 180-240 seconds). 14:56:20 End room use (Document Last) 14:57:25 End room use (Document Last) Intervention Summary Intervention Notes Time ActionType Lesion and Equipment Action# Pressure Duration Attributes Used 14:41:32 Place stent Dist LAD INTEGRITY RX 1 14 00:11 3.0 x 30 stent ([id number]) 14:46:02 Place stent Dist LAD INTEGRITY RX 2 14 00:19 3.0 x 18 stent ([id number]) 14:48:17 Reinflate Dist LAD INTEGRITY RX 3 4 00:18 stent 3.0 x 18 balloon stent ([id number]) Device Usage Item Name Manufacture Quantity Catalog Hospital Part Current Minimal Lot# / Number Charge Number Stock Stock Serial# Code INFLATOR [facility] 1 [id number] 901746 252228 932414 15 [facility] BasixCompak (RY9931) WHISPER Cheng 1 [id number] 895274 996340 530481 5 300cm guide Vascular wire ([id number]) SHEATH 6FR Terumo 1 SSB652 509472 226605 909955 40 [place] (SCW598) EMERALD Cardinal 1 373-791 580226 884072 617194 5 Guide Wire Health (502455) Tegaderm 4 x 3M 1 1626W 101408 831522 696541 5 4 (1626W) ACIST Acist 1 39744 278297 011359 888276 20 Syringe Medical (74427) Systems Inc Bag Decanter Microtek 1 2001S 910994 15066 385176 5 (2001S) Medical Inc. Medline Cath Medline 1 [id number] 336591 07713 710479 5 Pack ([id number]) ACIST Hand Acist 1 91460 988235 913382 370167 5 Control Medical (18598) Systems Inc ACIST Acist 1 47675 191718 630571 792263 5 Manifold Medical (04172) Systems Inc GUIDE 6FR Cardinal 1 [id number] 348597 571874 217300 10 XBLAD 3.5 Health catheter (14145982) INTEGRITY RX Medtronic 1 [id number] 231225 841681 653211 5 [id number] 3.0 x 30 stent ([id number]) EXOSEAL 6Fr Cardinal 1 EX600 882713 820812 962291 10 (EX600) Health INTEGRITY RX Medtronic 1 [id number] 465907 967672 605751 5 [id number] 3.0 x 18 stent ([id number]) Signature Audit [place] Stage Time Signature Unsigned Intra-Procedure 08/02/2019 Alisha Hernandez 2:56:20 PM RT(R) Intra-Procedure 08/02/2019 Brian 2:57:25 PM Uriel VICENTE Intra-Procedure 08/02/2019 Karson Harvey 2:57:50 PM Sukhdev CHUNG Signatures Performing Physician : Signature : Karson Buitrago MD Date : Time : Monitor : Alisha Hernandez Signature : RT Date : Time : Nurse : Brian Trevino Signature : RN Date : Time : [facility] [address] [place] [address]
[~2019-07-27 11:51] MED LIST: ALDACTONE25 MG PO; BETAPACE 80 MG80 MG PO; LANOXIN125 MCG PO; LISINOPRIL5 MG PO; NEURONTIN 300300 MG PO; OMEPRAZOLE20 M1 PO; PLAVIX75 MG PO; TEMAZEPAM30 MG PO; ULTRAM50 MG PO; XARELTO20 MG PO; ZANAFLEX4 MG PO
[2019-07-27 12:53] LABS: BASOPHILS 0.1 % (0-2); EOSINOPHILS 0.1 % (0-7); HEMATOCRIT 39.3 % (42.0-54.0); IMMATURE GRANULOCYTES 0.3 % (0-5); LYMPHOCYTES 2.8 % (15-50); MCH 27.4 pg (26.0-34.0); MCHC 33.1 g/dL (31.0-37.0); MCV 82.7 fL (80.0-100.0); MEAN PLATELET VOLUME 9.7 fL (7.4-10.4); MONOCYTES 9.3 % (2-11); NEUTROPHILS 87.4 % (40-80); RBC 4.75 10x6/uL (4.20-6.10); RDW 14.2 % (11.5-14.5)
[2019-07-27 13:02] LABS: PLATELET COUNT 235 10x3/uL (130-400)
[2019-07-27 13:03] LABS: CALCIUM 8.6 mg/dL (8.5-10.1); CARBON DIOXIDE 25.2 mmol/L (21.0-32.0); POTASSIUM - SERUM 4.2 mmol/L (3.5-5.1)
[2019-07-27 13:12] LABS: ALBUMIN 3.6 g/dL (3.4-5.0); BILIRUBIN - TOTAL 2.93 mg/dL (0.2-1.3); PROTEIN - SERUM 7.2 g/dL (6.4-8.2); TROPONIN-I 0.058 ng/mL (0.000-0.060)
[2019-07-27 13:58] LABS: BILIRUBIN NEGATIVE (NEGATIVE); GLUCOSE NEGATIVE (NEGATIVE); KETONE NEGATIVE (NEGATIVE); NITRITE NEGATIVE (NEGATIVE); UROBILINOGEN NORMAL (NORMAL)
[2019-07-27 14:01] LABS: BACTERIA FEW /hpf (NEGATIVE); EPITHELIAL CELLS NSEEN /hpf (0-5); RED CELLS - URINE 0-5 /hpf (0-5); WHITE CELLS - URINE 0-5 /hpf (NEGATIVE)
--- NOTE | 2019-07-27 19:25 | NUR ---
ROCEPHINE 1 GRAM IV COMPLETE AT 1530
[2019-07-27 21:49] VITALS: BP 104/43
[2019-07-27 22:39] VITALS: BP 104/43; BMI 24.2
[2019-07-28 01:49] VITALS: BP 106/50
[2019-07-28 05:33] LABS: BASOPHILS 0.1 % (0-2); EOSINOPHILS 0.6 % (0-7); HEMATOCRIT 36.2 % (42.0-54.0); HEMOGLOBIN 11.7 g/dL (13.5-17.5); IMMATURE GRANULOCYTES 0.4 % (0-5); LYMPHOCYTES 4.9 % (15-50); MCH 26.7 pg (26.0-34.0); MCHC 32.3 g/dL (31.0-37.0); MCV 82.6 fL (80.0-100.0); MEAN PLATELET VOLUME 9.9 fL (7.4-10.4); MONOCYTES 9.8 % (2-11); NEUTROPHILS 84.2 % (40-80); PLATELET COUNT 201 10x3/uL (130-400); RBC 4.38 10x6/uL (4.20-6.10); RDW 14.4 % (11.5-14.5)
[2019-07-28 05:45] LABS: WBC 14.2 10x3/uL (4.8-10.8)
[2019-07-28 05:49] LABS: ALBUMIN 2.7 g/dL (3.4-5.0); ANION GAP 13.9 mmol/L (8-16); BILIRUBIN - TOTAL 2.03 mg/dL (0.2-1.3); CALCIUM 7.8 mg/dL (8.5-10.1); CARBON DIOXIDE 22.7 mmol/L (21.0-32.0); MAGNESIUM - SERUM 1.9 mg/dL (1.8-2.4); PHOSPHOROUS 2.5 mg/dL (2.5-4.9); POTASSIUM - SERUM 4.6 mmol/L (3.5-5.1); PROTEIN - SERUM 6.1 g/dL (6.4-8.2)
[2019-07-28 06:01] VITALS: BP 112/53
--- NOTE | 2019-07-28 07:05 | NUR ---
ALERT AND ORIENTED, RESTING IN BED WITH EYES OPEN. NO C/O PAIN. NO S/S OF ACUTE DISTRESS NOTED. UP WITH ASSIST. STRICT I&O. SCDS. IV TO LEFT AC, NS INFUSING @ 75ML/HR. SITE PATENT WITHOUT REDNESS OR SWELLING. DENIES ANY NEEDS AT THIS TIME. CALL LIGHT IN REACH. WILL CONTINUE TO MONITOR.
[2019-07-28 09:15] LABS: % SATURATION 7 % (15-55); IRON 16 ug/dl (35-150); TOTAL IRON BIND CAPACITY 215 ug/dl (260-445); UNSAT IRON BIND CAPACITY 199 ug/dl (150-375)
[2019-07-28 09:37] VITALS: BP 106/46
--- NOTE | 2019-07-28 09:44 | NUR ---
THIS NURSE WAS CALLED INTO PATIENT'S ROOM BY ALEX. PATIENT WAS COMPLAINING OF CHEST PAIN TO MIDDLE OF LEFT CHEST. VITAL SIGNS 106/46, 74, 17, 91% RA. PLACED OXYGEN ON PATIENT ON 3L O2 NC. CALLED OLINDA PROCTOR, STATED SHE IS ORDERING STAT LABS. PERFORMED EKG ON PATIENT. CLARISSA SCANNED IN RESULTS. PATIENT STATED NO SHORTNESS OF BREATH OR DIFFICULTY BREATHING. STATED PAIN IS NOT BAD NOW. NO S/S OF ACUTE DISTRESS NOTED.
[2019-07-28 10:17] LABS: CKMB 0.2 U/L (0.0-3.6); CREATINE KINASE 34 UL (21-232); TROPONIN-I 0.042 ng/mL (0.000-0.060)
--- NOTE | 2019-07-28 13:12 | NUR ---
I have reviewed this patient and I concur with the Shift Assessment completed by the Licensed Practical Nurse today this shift.
[2019-07-28 17:16] VITALS: BP 112/64
--- NOTE | 2019-07-28 18:37 | NUR ---
ALERT AND ORIENTED, RESTING IN BED. NO C/O PAIN. NO S/S OF ACUTE DISTRESS NOTED. DENIES ANY NEEDS AT THIS TIME. CALL LIGHT IN REACH. WILL CONTINUE TO MONITOR.
[2019-07-28 19:58] VITALS: BP 105/47
--- NOTE | 2019-07-28 20:00 | NUR ---
PATIENT RESTING IN BED WITH EYES OPEN. NO S/S OF ACUTE DISTRESS. PATIENT COMPLAINS OF BEIGN SHORT OF BREATH, BUT ALSO STATED THAT HE "HAD NEVER BEEN IN A HOSPITAL BEFORE THIS VISIT." PATIENT HAS IV IN LEFT AC, NORMAL SALINE @ 75 ML/HR. IV IS PATENT WITHOUT REDNESS, SWELLING, OR TENDERNESS. PATIENT IS UP WITH ASSISTANCE BECAUSE HE IS A LITTLE WOBBLY. CALL LIGHT IN PLACE. WILL CONTINUE TO MONITOR.
[2019-07-28 22:12] LABS: CKMB 0.1 U/L (0.0-3.6); CREATINE KINASE 31 UL (21-232); TROPONIN-I 0.029 ng/mL (0.000-0.060)
[2019-07-29] VITALS: BP 103/48
[2019-07-29 04:00] VITALS: BP 116/50
[2019-07-29 05:11] LABS: BASOPHILS 0.1 % (0-2); EOSINOPHILS 1.2 % (0-7); HEMATOCRIT 35.4 % (42.0-54.0); HEMOGLOBIN 11.4 g/dL (13.5-17.5); IMMATURE GRANULOCYTES 0.4 % (0-5); LYMPHOCYTES 6.1 % (15-50); MCH 26.8 pg (26.0-34.0); MCHC 32.2 g/dL (31.0-37.0); MCV 83.1 fL (80.0-100.0); MEAN PLATELET VOLUME 9.8 fL (7.4-10.4); MONOCYTES 9.8 % (2-11); NEUTROPHILS 82.4 % (40-80); PLATELET COUNT 193 10x3/uL (130-400); RBC 4.26 10x6/uL (4.20-6.10); RDW 14.5 % (11.5-14.5); WBC 13.9 10x3/uL (4.8-10.8)
[2019-07-29 05:18] LABS: ALBUMIN 2.4 g/dL (3.4-5.0); ANION GAP 11.8 mmol/L (8-16); BILIRUBIN - TOTAL 1.28 mg/dL (0.2-1.3); CALCIUM 7.9 mg/dL (8.5-10.1); CARBON DIOXIDE 23.8 mmol/L (21.0-32.0); MAGNESIUM - SERUM 1.8 mg/dL (1.8-2.4); PHOSPHOROUS 2.9 mg/dL (2.5-4.9); POTASSIUM - SERUM 4.6 mmol/L (3.5-5.1); PROTEIN - SERUM 5.9 g/dL (6.4-8.2)
--- NOTE | 2019-07-29 06:22 | NUR ---
I have reviewed this patient and I concur with the Shift Assessment completed by the Licensed Practical Nurse today this shift.
[2019-07-29 09:38] VITALS: BP 125/62
[2019-07-29 10:43] LABS: CHOL - HDL RATIO 3.8 ratio (2.3-4.9); LDL-HDL RATIO 2.2 ratio (1.5-3.5)
[2019-07-29 13:06] VITALS: BP 122/58
[2019-07-29 16:28] VITALS: BP 117/63
[2019-07-29 20:00] VITALS: BP 119/58
--- NOTE | 2019-07-29 20:00 | NUR ---
PATIENT RESTING IN BED WATCHING TV. NO S/S OF DISTRESS. NO C/O AT THIS TIME. PATIENT HAS IV IN LEFT AC, NORMAL SALINE @ 75 ML/HR. IV IS PATENT WIHTOUT REDNESS, SWELLING, OR TENDERNESS. PATIENT IS UP WITH ASSIST TO BATHROOM. CALL LIGHT IN PLACE. WILL CONTINUE TO MONITOR.
[2019-07-30] VITALS: BP 125/64
--- NOTE | 2019-07-30 02:30 | NUR ---
PATIENT IV IN LEFT AC INFILTRATED. IV WAS TAKING OUT, CATHETER TIP INTACT. NEW IV PLACE IN RIGHT FOREARM. IV IS PATENT WITHOUT REDNESS, SWELLING, OR TEDNERNESS. CALL LIGHT IN PLACE. WILL CONTINUE TO MONITOR.
--- NOTE | 2019-07-30 03:08 | NUR ---
I have reviewed this patient and I concur with the Shift Assessment completed by the Licensed Practical Nurse today this shift.
[2019-07-30 04:00] VITALS: BP 134/67
[2019-07-30 06:28] LABS: BASOPHILS 0.1 % (0-2); EOSINOPHILS 1.4 % (0-7); HEMATOCRIT 33.6 % (42.0-54.0); HEMOGLOBIN 10.8 g/dL (13.5-17.5); IMMATURE GRANULOCYTES 0.3 % (0-5); LYMPHOCYTES 6.7 % (15-50); MCH 26.4 pg (26.0-34.0); MCHC 32.1 g/dL (31.0-37.0); MCV 82.2 fL (80.0-100.0); MEAN PLATELET VOLUME 9.7 fL (7.4-10.4); MONOCYTES 9.4 % (2-11); NEUTROPHILS 82.1 % (40-80); PLATELET COUNT 215 10x3/uL (130-400); RBC 4.09 10x6/uL (4.20-6.10); RDW 14.4 % (11.5-14.5); WBC 10.7 10x3/uL (4.8-10.8)
[2019-07-30 07:00] LABS: ALBUMIN 2.4 g/dL (3.4-5.0); BILIRUBIN - TOTAL 1.07 mg/dL (0.2-1.3); CALCIUM 8.2 mg/dL (8.5-10.1); CARBON DIOXIDE 20.2 mmol/L (21.0-32.0); CREATININE - SERUM 1.6 mg/dL (0.6-1.3); MAGNESIUM - SERUM 1.9 mg/dL (1.8-2.4); POTASSIUM - SERUM 4.2 mmol/L (3.5-5.1); PROTEIN - SERUM 6.2 g/dL (6.4-8.2)
--- NOTE | 2019-07-30 08:00 | NUR ---
PATIENT IN BED WITH IV INTACT. NO COMPLAINTS OR SIGNS OF DISTRESS. ASSESSMENT COMPLETE. DRESSING TO RIGHT FOOT CDI. CALL LIGHT WITHIN REACH.
--- NOTE | 2019-07-30 08:15 | NUR ---
PATIENT IN BED WITH IV INTACT. NO COMPLAINTS OR SIGNS OF DISTRESS AT THIS TIME. SITTING UP IN BED EATING. CALL LIGHT WITHIN REACH.
[2019-07-30 09:00] VITALS: BP 123/75
--- NOTE | 2019-07-30 10:30 | NUR ---
PATIENT UP TO SHOWER WITH GLASS ETCHER ASSIST.
--- NOTE | 2019-07-30 12:30 | NUR ---
PATIENT UPSET BC HE SAID HIS FISH FOR LUNCH WAS DISGUSTING AND MADE HIM NAUSEATED JUST TO SMELL IT. ASKED IF HE WANTED SOMETHING ELSE. STATED HE DIDNT WANT ANYTHING RIGHT NOW. IV INTACT. CALL LIGHT WITHIN REACH.
[2019-07-30 14:18] VITALS: BP 152/75
--- NOTE | 2019-07-30 15:24 | NUR ---
PATIENT IN BED WITH IV INTACT. NO COMPLAINTS OR SIGNS OF DISTRESS. EYES OPEN WATCHING TV. CALL LIGHT WITHIN REACH.
--- NOTE | 2019-07-30 19:07 | NUR ---
PATIENT IN BED WITH IV INTACT. EYES OPEN. NO COMPLAINTS CALL LIGHT WITHIN REACH.
[2019-07-30 20:00] VITALS: BP 122/57
[2019-07-31] VITALS: BP 141/72
--- NOTE | 2019-07-31 01:17 | NUR ---
I have reviewed this patient and I concur with the Shift Assessment completed by the Licensed Practical Nurse today this shift.
[2019-07-31 04:00] VITALS: BP 138/65
[2019-07-31 06:12] LABS: BASOPHILS 0.2 % (0-2); EOSINOPHILS 2.8 % (0-7); HEMOGLOBIN 10.8 g/dL (13.5-17.5); IMMATURE GRANULOCYTES 0.2 % (0-5); LYMPHOCYTES 11.3 % (15-50); MCH 26.5 pg (26.0-34.0); MCHC 32.7 g/dL (31.0-37.0); MCV 81.1 fL (80.0-100.0); MEAN PLATELET VOLUME 9.6 fL (7.4-10.4); MONOCYTES 10.6 % (2-11); NEUTROPHILS 74.9 % (40-80); PLATELET COUNT 194 10x3/uL (130-400); RBC 4.07 10x6/uL (4.20-6.10); RDW 14.4 % (11.5-14.5); WBC 8.9 10x3/uL (4.8-10.8)
[2019-07-31 06:37] LABS: ALBUMIN 2.3 g/dL (3.4-5.0); ANION GAP 16.2 mmol/L (8-16); BILIRUBIN - TOTAL 0.95 mg/dL (0.2-1.3); CARBON DIOXIDE 20.9 mmol/L (21.0-32.0); CREATININE - SERUM 1.5 mg/dL (0.6-1.3); MAGNESIUM - SERUM 1.6 mg/dL (1.8-2.4); PHOSPHOROUS 2.7 mg/dL (2.5-4.9); POTASSIUM - SERUM 4.1 mmol/L (3.5-5.1); PROTEIN - SERUM 6.1 g/dL (6.4-8.2)
--- NOTE | 2019-07-31 07:55 | NUR ---
RESTING IN BED, NO DISTRESS NOTED, CONT TO MONITOR PAIN, IV INFUSING
[2019-07-31 08:32] VITALS: BP 153/77
[2019-07-31 17:50] VITALS: BP 132/63
[2019-07-31 22:30] VITALS: BP 136/67
[2019-08-01 01:25] VITALS: BP 140/72
[2019-08-01 04:59] VITALS: BP 141/70
[2019-08-01 06:18] LABS: BASOPHILS 0.2 % (0-2); EOSINOPHILS 2.9 % (0-7); HEMATOCRIT 32.5 % (42.0-54.0); HEMOGLOBIN 10.7 g/dL (13.5-17.5); IMMATURE GRANULOCYTES 0.7 % (0-5); LYMPHOCYTES 11.6 % (15-50); MCH 26.9 pg (26.0-34.0); MCHC 32.9 g/dL (31.0-37.0); MCV 81.7 fL (80.0-100.0); MEAN PLATELET VOLUME 9.5 fL (7.4-10.4); MONOCYTES 11.3 % (2-11); NEUTROPHILS 73.3 % (40-80); PLATELET COUNT 225 10x3/uL (130-400); RBC 3.98 10x6/uL (4.20-6.10); RDW 14.2 % (11.5-14.5); WBC 8.4 10x3/uL (4.8-10.8)
[2019-08-01 06:48] LABS: ALBUMIN 2.4 g/dL (3.4-5.0); ANION GAP 14.7 mmol/L (8-16); BILIRUBIN - TOTAL 0.81 mg/dL (0.2-1.3); CALCIUM 8.5 mg/dL (8.5-10.1); CARBON DIOXIDE 23.8 mmol/L (21.0-32.0); CREATININE - SERUM 1.5 mg/dL (0.6-1.3); MAGNESIUM - SERUM 1.7 mg/dL (1.8-2.4); PHOSPHOROUS 3.8 mg/dL (2.5-4.9); POTASSIUM - SERUM 4.5 mmol/L (3.5-5.1); PROTEIN - SERUM 6.1 g/dL (6.4-8.2)
--- NOTE | 2019-08-01 07:37 | NUR ---
REPLACING HIS MAG VIA IV THIS MORNING. HE IS ALERT, TALKING. WAITING TO HAVE HIS HEART CATH. SR 86 PER OPERATIONS VICE PRESIDENT THIS MORNING. DENIES ANY PAIN.
[2019-08-01 09:27] VITALS: BP 140/67
[2019-08-01 10:44] LABS: CHOL - HDL RATIO 5.8 ratio (2.3-4.9); LDL-HDL RATIO 3.7 ratio (1.5-3.5)
[2019-08-01 13:19] VITALS: BP 158/74
[2019-08-01 14:42] VITALS: Ht 167.6 cm; Wt 68.0 kg
[2019-08-01 17:47] VITALS: BP 156/82
--- NOTE | 2019-08-01 19:45 | NUR ---
PATIEN ALERT AND ORENTED ABLE TO VOICE NEEDS AND WANTS TO STAFF. ON ROOM AIR, IV TO RIGHT FA. WITH NS AT 75ML/HR. TELEMTRY IN PLACE. WATER AND CALL LIGHT IN REACH BED LOW. NO NEEDS AT THIS TIME.
[2019-08-01 20:00] VITALS: BP 150/78
[2019-08-02 00:57] VITALS: BP 146/76
[2019-08-02 04:57] VITALS: BP 142/80
[2019-08-02 05:52] LABS: BASOPHILS 0.2 % (0-2); EOSINOPHILS 3.4 % (0-7); HEMOGLOBIN 10.6 g/dL (13.5-17.5); LYMPHOCYTES 10.5 % (15-50); MCH 26.3 pg (26.0-34.0); MCHC 32.1 g/dL (31.0-37.0); MCV 81.9 fL (80.0-100.0); MEAN PLATELET VOLUME 9.2 fL (7.4-10.4); MONOCYTES 9.9 % (2-11); PLATELET COUNT 239 10x3/uL (130-400); RBC 4.03 10x6/uL (4.20-6.10); RDW 14.5 % (11.5-14.5); WBC 10.2 10x3/uL (4.8-10.8)
[2019-08-02 06:15] LABS: ALBUMIN 2.4 g/dL (3.4-5.0); ANION GAP 13.3 mmol/L (8-16); BILIRUBIN - TOTAL 0.76 mg/dL (0.2-1.3); CALCIUM 8.4 mg/dL (8.5-10.1); CARBON DIOXIDE 23.8 mmol/L (21.0-32.0); CREATININE - SERUM 1.4 mg/dL (0.6-1.3); PHOSPHOROUS 4.1 mg/dL (2.5-4.9); POTASSIUM - SERUM 4.1 mmol/L (3.5-5.1); PROTEIN - SERUM 6.1 g/dL (6.4-8.2)
--- NOTE | 2019-08-02 06:30 | NUR ---
LABS IN ORDER TO CALL IF CREATININE IS >1.4 TO DAY CREATININE IS 1.4 CALL IF H&H IS BELOW NORMAL HBG IS 10.6 TODAY ON 07-31 WAS 10.7 HCT 33.0 TODAY 07-31 IT WAS 32.5 CALL TO SPINNING MULE OPERATOR NO NEW ORDERS AT THIS TIME.
--- NOTE | 2019-08-02 07:56 | NUR ---
NPO, ALERT,TAKING, WAITING ON HIS CATH TODAY. DENIES ANY PAIN OR NEEDS.
[2019-08-02 08:47] VITALS: BP 167/70
[2019-08-02 08:50] LABS: CHOL - HDL RATIO 5.7 ratio (2.3-4.9); LDL-HDL RATIO 3.7 ratio (1.5-3.5)
--- NOTE | 2019-08-02 14:05 | NUR ---
GONE TO THE SLATE MIXER.
--- NOTE | 2019-08-02 15:21 | NUR ---
ARRIVE TO ROOM VIA BED FROM SENIOR LABORATORY TECHNICIAN. TRANSFER FROM [facility]. SEDATED. AROUSES TO STIMULI. RT GROIN DRESSING CLEAN DRY INTACT. FREE FROM BLEEDING. FREE FROM HEMATOMA. PULSE PALPABLE BILATERALLY. BP-143/86, HR-68 SINUS RYTHM, O2-95% WITH 2L NC. CONTINUE PLAN OF CARE AND SAFETY PRECAUTIONS.
[2019-08-02 16:02] VITALS: BP 1658/78
--- NOTE | 2019-08-02 19:46 | NUR ---
RECEIVED BEDSIDE REPORT. PATIENT IS ALERT AND ORIENTED, RESTING COMFORTABLY IN BED. RESPIRATIONS ARE EVEN AND UNLABORED. NO S/S OF DISTRESS. NO C/OPAIN. ASSESSED RIGHT GROIN. NO SIGNS OF BLEEDING, BRUISING OR HEMATOMA. CALL LIGHT WITHIN REACH. WILL CPOC.
[2019-08-02 21:12] VITALS: BP 152/80
--- NOTE | 2019-08-02 21:16 | NUR ---
RECEIVED CALLED FROM PATIENT . SHE WAS UNABLE TO PROVIDE ME WITH PATIENT PERSONAL CODE. EXPLAINED CALLED THE REASON TO WHY I COULD NOT. CALLER ASKED TO BE TRANSFERED TO HIS ROOM.
--- NOTE | 2019-08-02 21:27 | NUR ---
PATIENT CLOTHES FOUND IN ROOM ON MED/SURG. CLOTHES RETURNED TO PATIENT.
[2019-08-03 05:17] VITALS: BP 130/72
[2019-08-03 06:08] LABS: BASOPHILS 0.1 % (0-2); EOSINOPHILS 4.8 % (0-7); HEMATOCRIT 34.4 % (42.0-54.0); HEMOGLOBIN 10.9 g/dL (13.5-17.5); IMMATURE GRANULOCYTES 1.4 % (0-5); LYMPHOCYTES 10.2 % (15-50); MCH 26.1 pg (26.0-34.0); MCHC 31.7 g/dL (31.0-37.0); MCV 82.3 fL (80.0-100.0); MEAN PLATELET VOLUME 9.4 fL (7.4-10.4); MONOCYTES 9.3 % (2-11); NEUTROPHILS 74.2 % (40-80); PLATELET COUNT 254 10x3/uL (130-400); RBC 4.18 10x6/uL (4.20-6.10); RDW 14.5 % (11.5-14.5); WBC 9.1 10x3/uL (4.8-10.8)
[2019-08-03 06:50] LABS: ALBUMIN 2.5 g/dL (3.4-5.0); BILIRUBIN - TOTAL 0.81 mg/dL (0.2-1.3); CALCIUM 7.8 mg/dL (8.5-10.1); CARBON DIOXIDE 24.1 mmol/L (21.0-32.0); CREATININE - SERUM 1.2 mg/dL (0.6-1.3); POTASSIUM - SERUM 4.1 mmol/L (3.5-5.1); PROTEIN - SERUM 5.4 g/dL (6.4-8.2)
--- NOTE | 2019-08-03 09:08 | OP ---
PATIENT NAME: CARLOS ARANGO MEDICAL RECORD: [id number] :[birth year] LOCATION:D.M2 D.2116 ADMISSION DATE:07/27/19 SURGEON: AURELIA JAMES MD DATE OF OPERATION: 08/02/2019 [facility] REPORT A 6-Maori sheath placed in right femoral artery. An XB LAD guiding catheter provided a good guide catheter support followed by 300 cm Whisper wire placed along the long diffuse stenosed LAD. Stents were then deployed in the following fashion: A 3.0 x 30 and a 3.0 x 18 stents were placed to cover the entire length of the lesion. These were both inflated up to 14 atmospheres for 45 seconds. Final angiography shows excellent resolution of a diffuse 90% stenosis, no significant residual. BRANDON flow was 3 throughout the procedure. Heparin was used during the case. The patient was loaded with Plavix and Integrilin were used as well. Sheath was closed with ExoSeal device. TRANSINT:[id number] Voice Confirmation ID: [id number] DOCUMENT ID: [id number] AURELIA JAMES MD at 0908 CC: [id number] DICTATION DATE: 08/02/19 1459 BILINGUAL PATIENT SUPPORT CASEWORKER: 08/02/19 1616 ADM IN [facility] [address] [place] [address]
[2019-08-03 09:27] VITALS: BP 116/53
[2019-08-03] MEDS ORDERED: LEVAQUIN750 MG PO (10:40)
[2019-08-03] MEDS ORDERED: BAYER CHEWABLE81 MG PO (11:11)
--- NOTE | 2019-08-03 12:01 | MORECARE ---
CASE MANAGEMENT DISCHARGE SUMMARY PATIENT: CARLOS ARANGO UNIT: [id number] ADM DATE: 07/27/19 AGE: 74 : [birth year] SEX: M ROOM/BED: D.2116 AUTHOR: STEVE JONES PHYSICIAN: REFERRING PHYSICIAN: FARIDEH CHEEMA MD DATE OF SERVICE: 08/03/19 Discharge Plan Patient Name: CARLOS ARANGO Facility: [facility]:[place] : 1945 Planned Disposition: Home Anticipated Discharge Date: 08/03/19 Discharge Date: Expected LOS: 7 Initial Reviewer: [email or web address] Initial Review Date: 08/03/2019 Generated: 08/03/19 1:00 pm Patient Name: CARLOS ARANGO Page [phone] at 1201 All edits/amendments must be made on the electronic document DICTATION DATE: 08/03/19 1200 ACID WASH OPERATOR: LUIS DANIEL 08/03/19 1200 RPT#: [id number] DC DATE: STATUS: ADM IN [facility] [address] [place] [address] END OF REPORT
--- NOTE | 2019-08-03 12:08 | MORECARE ---
CASE MANAGEMENT DISCHARGE SUMMARY PATIENT: CARLOS ARANGO UNIT: [id number] ADM DATE: 07/27/19 AGE: 74 : [birth year] SEX: M ROOM/BED: D.2116 AUTHOR: KAREN,DOC PHYSICIAN: REFERRING PHYSICIAN: FARIDEH CHEEMA MD DATE OF SERVICE: 08/03/19 Discharge Plan Patient Name: CARLOS ARANGO Facility: [facility]:[place] : 1945 Planned Disposition: Home Anticipated Discharge Date: 08/03/19 Discharge Date: Expected LOS: 7 Initial Reviewer: [email or web address] Initial Review Date: 08/03/2019 Generated: 08/03/19 1:07 pm Comments DCP- Discharge Planning Updated by [email or web address]: Luda Monreal on 08/03/19 11:[address] Patient Name: CARLOS ARANGO Admission Status: ER Accout number: [id number] Admission Date: 07-27-2019 : 1945 Admission Diagnosis:UNSPECIFIED ABDOMINAL PAIN Attending: FARIDEH CHEEMA Current LOS: 7 Anticipated DC Date: 08-03-2019 Planned Disposition: Home Primary Insurance: [employer] [facility] Discharge Planning Comments: CM met with patient to complete initial dc planning assessment. CM educated patient on the CM role and verbal consent given by patient to complete assessment. Patient lives at home with his . At discharge patient plans to return and feels this is a safe discharge. CM discussed availability of home health, rehab services, and medical equipment. Patient denied known discharge needs at this time. States his will pick him up at discharge. No needs identified. CM will continue to follow and will assist as needed with dc plans/needs. Shower Attendant: Luda Monreal DCPIA - Discharge Planning Initial Assessment Updated by [email or web address]: Luda Monreal on 08/03/19 12:01 pm * Is the patient Alert and Oriented? Yes * How many steps to enter\exit or inside your home? 0/0 * PCP Dr. Gillis * Pharmacy [facility] on [address] * Preadmission Environment Home with Family * ADLs Independent * Equipment None * List name and contact numbers for known caregivers / representatives who currently or will assist patient after discharge: Gia Arango - [phone] * Verbal permission to speak to the caregivers and representatives has been obtained from the patient. Yes * Community resources currently utilized None * Additional services required to return to the preadmission environment? No * Can the patient safely return to the preadmission environment? Yes * Has this patient been hospitalized within the prior 30 days at any hospital? No Coverage Notice Reviewer: [email or web address] Yifan Monreal Notice Issued Date-Time: 08/03/2019 12:02 Notice Type: IM Discharge Notice Notice Delivered To: Patient Relationship to Patient: Self Instrument Tech Name: Delivery Method: HAND - Hand Delivered Beatriz Days: Prior Verbal Notification: Recipient Understood Notice: Yes Recipient Signature: Yes Med Rec Note Co-signed by Attending: Coverage Notice Comment: IMM given, explained, signed, copy placed in MR Last DP export: 08/03/19 11:01 a Patient Name: CARLOS ARANGO Page [id number] at 1208 All edits/amendments must be made on the electronic document DICTATION DATE: 08/03/191206 SPECIALTY DEPARTMENT SUPERVISOR: LUIS DANIEL 08/03/191206 RPT#: [id number] DC DATE: STATUS: ADM IN [facility] [address] [place] [address] END OF REPORT
--- NOTE | 2019-08-03 12:23 | NUR ---
D/C PTS R.FA PIV WITH CATHETER TIP FULLY INTACT. ALL BELONGINGS COLLECTED AND BAGGED WITH PT. D/C PTS TELEMETRY AND RETURNED TO [facility] APR. DISCHARGE TEACHING PROVIDED AND PAPERS SIGNED. PT VERBALIZED UNDERSTANDING AND DENIES ANY QUESTIONS OR CONCERNS. PT CALLED FOR TRANSPORTATION AT THIS TIME. NO FURTHER NEEDS.
--- NOTE | 2019-08-04 07:22 | MORECARE ---
CASE MANAGEMENT DISCHARGE SUMMARY PATIENT: CARLOS ARANGO UNIT: [id number] ADM DATE: 07/27/19 AGE: 74 : [birth year] SEX: M ROOM/BED: D.2116 AUTHOR: KAREN,DOC PHYSICIAN: REFERRING PHYSICIAN: FARIDEH CHEEMA MD DATE OF SERVICE: 08/04/19 Discharge Plan Patient Name: CARLOS ARANGO Facility: [facility]:[place] : 1945 Planned Disposition: Home Anticipated Discharge Date: 08/03/19 Discharge Date: 08/03/2019 Expected LOS: 7 Initial Reviewer: [email or web address] Initial Review Date: 08/03/2019 Generated: 08/04/19 8:21 am Comments DCP- Discharge Planning Updated by [email or web address]: Luda Monreal on 08/03/19 11:[address] Patient Name: CARLOS ARANGO Admission Status: ER Accout number: [id number] Admission Date: 07-27-2019 : 1945 Admission Diagnosis:UNSPECIFIED ABDOMINAL PAIN Attending: FARIDEH CHEEMA Current LOS: 7 Anticipated DC Date: 08-03-2019 Planned Disposition: Home Primary Insurance: [employer] [facility] Discharge Planning Comments: CM met with patient to complete initial dc planning assessment. CM educated patient on the CM role and verbal consent given by patient to complete assessment. Patient lives at home with his . At discharge patient plans to return and feels this is a safe discharge. CM discussed availability of home health, rehab services, and medical equipment. Patient denied known discharge needs at this time. States his will pick him up at discharge. No needs identified. CM will continue to follow and will assist as needed with dc plans/needs. Tool Repairer: Luda Monreal DCPIA - Discharge Planning Initial Assessment Updated by [email or web address]: Luda Monreal on 08/03/19 12:01 pm * Is the patient Alert and Oriented? Yes * How many steps to enter\exit or inside your home? 0/0 * PCP Dr. Gillis * Pharmacy [facility] on [address] * Preadmission Environment Home with Family * ADLs Independent * Equipment None * List name and contact numbers for known caregivers / representatives who currently or will assist patient after discharge: Gia Arango - [phone] * Verbal permission to speak to the caregivers and representatives has been obtained from the patient. Yes * Community resources currently utilized None * Additional services required to return to the preadmission environment? No * Can the patient safely return to the preadmission environment? Yes * Has this patient been hospitalized within the prior 30 days at any hospital? No Coverage Notice Reviewer: [email or web address] Yifan Monreal Notice Issued Date-Time: 08/03/2019 12:02 Notice Type: IM Discharge Notice Notice Delivered To: Patient Relationship to Patient: Self Trash Man Name: Delivery Method: HAND - Hand Delivered Beatriz Days: Prior Verbal Notification: Recipient Understood Notice: Yes Recipient Signature: Yes Med Rec Note Co-signed by Attending: Coverage Notice Comment: IMM given, explained, signed, copy placed in MR Last DP export: 08/03/19 11:08 a Patient Name: CARLOS ARANGO Page [id number] at 0722 All edits/amendments must be made on the electronic document DICTATION DATE: 08/04/19720 BLACK TOP PAVER OPERATOR: LUIS DANIEL 08/04/19720 RPT#: [id number] DC DATE:08/03/19 STATUS: DIS IN [facility] [address] [place] [address] END OF REPORT
== END 2019-08-03 13:20 | disposition home or self-care (01) | DRG 248 ==
LOC: D.ER 11:51 → D.M2 16:31 → D.MS 16:31 → D.M2 08-02 14:14
PROVIDERS: Family Medicine; Internal Medicine Cardiovascular Disease; Internal Medicine Interventional Cardiology; ADMIT Internal Medicine Nephrology; ATTEND Internal Medicine Nephrology
PROC: 02703EZ Dilation of Coronary Artery, One Artery with Two Intraluminal Devices, Percutaneous Approach (ICD-10-PCS; principal; 2019-08-02 14:45)
DX: I25.119 Atherosclerotic heart disease of native coronary artery with unspecified angina pectoris (principal); J18.9 Pneumonia, unspecified organism; N17.9 Acute kidney failure, unspecified; E87.1 Hypo-osmolality and hyponatremia; E44.0 Moderate protein-calorie malnutrition; I25.5 Ischemic cardiomyopathy; N43.3 Hydrocele, unspecified; I86.1 Scrotal varices; I48.0 Paroxysmal atrial fibrillation; Z68.24 Body mass index [BMI] 24.0-24.9, adult

== ENCOUNTER 2019-08-10 11:46 | Inpatient (IN) | payer MEDICARE ==
[2019-08-10] VITALS (19 sets, daily range): BP systolic 73–137; BP diastolic 39–71; BMI 26.7
[~2019-08-10] VITALS: Ht 167.6 cm; Wt 73.9 kg
--- NOTE | ~2019-08-10 | HEMODYNAMI ---
PATIENT:CARLOS ARANGO MEDICAL RECORD: [id number] : [birth year] LOCATION:[facility] ADMISSION DATE: 08/10/19 Generatedon:08/10/201913:31 Patient name: CARLOS ARANGO Patient #: [id number] : 1945 Date of study: 08/10/2019 Page: Of Hemodynamic Procedure Report Patient Data Patient Demographics Procedure consent was obtained First Name: CARLOS Gender: Male Last Name: CONCHITA : 1945 Patient #: [id number] Age: 74 year(s) Race: SSN: [id number] Additional ID: [id number] Contact details [address]: [address] [place] [address] State: [place] City: [place] Zip code: [address] Past Medical History Allergies: No known allergies Admission Admission Data Admission Date: 08/10/2019 Admission Time: 11:46 Arrival Date: 08/10/2019 Arrival Time: 0:00 Admit Source: Emergency Insurance Payor: Medicare department [facility] #: [id number] Height (in.): 66 BSA: 1.84 (m2) Height (cm.): 167.64 BMI: 26.69 (kg/m2) Weight (lbs.): 165.35 Weight (kg.): 75 Lab Results Lab Result Date: 08/10/2019 Lab Result Time: 0:00 CBC Name Units Result Min Max Hematocrit % 38.3 *-(----)-- 42 54 Hemoglobin g/dl 12.6 -*(----)-- 13.5 17.5 Procedure Procedure Types Cath Procedure Diagnostic Procedure [facility] w/Coronaries Intra-Aortic Balloon Pump Sedation Charges Moderate Sedation up to 45 minutes PCI Procedure PTCA PTCA Initial Hemochron ACT Test Procedure Description Procedure Date Procedure Date: 08/10/2019 Procedure Start Time: 12:30 Procedure End Time: 13:26 Procedure Staff Name Function Karson Buitrago MD Performing Physician Ana Montoya RN Nurse Alisha Hernandez RT Scrub Lexis May RT Monitor Indication Chest pain Procedure Data Cath Procedure Fluoroscopy Diagnostic fluoroscopy Total fluoroscopy Time: 4 time: 4 min min Diagnostic fluoroscopy Total fluoroscopy dose: 669 dose: 669 mGy mGy Contrast Material Contrast Material Type Amount (ml) Isovue 300 40 Entry Location Entry Primary Successful Side Size Upsize Upsize Entry Closure Succes sful Closure Location (Fr) 1 (Fr) 2 (Fr) Remarks Device Remarks Femoral Right 6 Fr 8 Fr artery Short Estimated blood loss: 10 ml Diagnostic catheters Device Type Used For End Catheter Placement MULTIPACK Pigtail 5 Fr Procedure catheter Procedure Complications No complications Procedure Medications Medication Administration Route Dosage 0.9% NaCl I.V. 100 ml/hr Oxygen etCO2 Nasal cannula 2 l/min Lidocaine 2% added to field 20 Heparin Flush Bag added to field 2 bags (1000units/500ml NS) Versed I.V. 2 mg Fentanyl I.V. 50 mcg Plavix P.O. 600 mg Heparin Bolus I.V. 5000 units Integrilin (Bolus I.V. 6.8 ml 2mg/ml) Integrilin (Bolus wasted 3.2 ml 2mg/ml) Heparin Drip I.V. drip 1000 units/hr (30963przez/250 D5W) Integrilin Drip I.V. drip 6 ml/hr (75mg/100ml) Fentanyl I.V. 50 mcg Mechanical Ventricular Support IABP: Inserted after PCI has begun Hemodynamics Rest BSA: 1.84 (m2) HGB: 12.6 (g/dl) O2 Consumption: Estimated: 246.35 (ml/min) O2 Co nsumption indexed: Estimated:133.89 (ml/min/m) Heart Rate: 119 (bpm) Pressure Samples Time Site Value (mmHg) Purpose Heart Use Rate(bpm) 12:40 LV 111/20,19 Snapshot 122 Gradients Valve Time Site Site Mean SEP/DFP Peak To Heart Use 1 2 (mmHg) (sec/min) Peak Rate (mmHg) (bpm) Aortic 12:41 LV AO 111 Snapshots Pre Cath Intra NCS Post Cath Vital Signs Time Heart Resp SPO2 etCO2 NIBP (mmHg) Rhythm Pain Sedation Rate (ipm) (%) (mmHg) Status Level (bpm) 12:27:02 114 12 98 25 139/106(121) ST 0 (11) 10(A) , No pain 12:31:06 118 14 98 15.6 124/92(113) ST 0 (11) 10(A) , No pain 12:35:04 122 14 97 0 122/93(103) ST 0 (11) 9(A) , No pain 12:39:01 121 12 97 0 108/90(95) ST 0 (11) 9(A) , No pain 12:43:44 116 14 98 0 110/82(94) ST 0 (11) 9(A) , No pain 12:47:41 115 14 97 0 109/77(93) ST 0 (11) 9(A) , No pain 12:51:37 110 13 95 0 106/81(94) ST 0 (11) 9(A) , No pain 12:55:38 58 16 96 0 108/65(97) SB 0 (11) 9(A) , No pain 12:59:40 63 14 98 0 98/65(79) NSR 0 (11) 9(A) , No pain 13:03:40 61 16 97 0 97/60(74) NSR 0 (11) 9(A) , No pain 13:07:38 60 18 98 0 93/61(70) NSR 0 (11) 9(A) , No pain 13:12:37 57 15 98 0 Measuring SB 0 (11) 9(A) , No pain 13:13:34 60 19 98 0 91/73(86) NSR 0 (11) 9(A) , No pain 13:17:31 66 12 99 0 89/55(75) NSR 0 (11) 9(A) , No pain 13:22:30 60 15 0 Measuring NSR 0 (11) 9(A) , No pain 13:22:34 60 15 0 94/59(84) NSR 0 (11) 9(A) , No pain 13:26:32 57 20 98 0 100/60(90) NSR 0 (11) 9(A) , No pain Medications Time Medication Route Dose Verified Delivered Reason No horace Effectiveness by by 12:27:21 0.9% NaCl I.V. 100 Karson Perez used for ml/hr JacobSukhdev Montoya procedure RN 12:27:27 Oxygen etCO2 2 l/min Karson Ana used for Nasal [facility] procedure cannula MD VICENTE 12:27:32 Lidocaine 2% added 20ml Karson Ty used for [facility] field MD CHUNG 12:27:37 Heparin Flush added 2 bags Karson Ty used for Bag to [facility] procedure (1000units/500ml field MD CHUNG NS) 12:29:03 Versed I.V. 2 mg Karson Ana for sedation St Sukhdev Montoya MD, RN 12:29:11 Fentanyl I.V. 50 mcg Karson Ana for sedation St Sukhdev Montoya MD, RN 12:35:08 Plavix P.O. 600 mg Karson Ana for [facility] Sukhdev Montoya antiplatelet RN therapy 12:36:11 Heparin Bolus I.V. 5000 Karson Ana for units [facility] Sukhdev Montoya anticoagulation MD VICENTE 12:36:20 Integrilin I.V. 6.8 ml Karson Ana for (Bolus 2mg/ml) St Sukhdev Montoya antiplatelet RN therapy 12:36:24 Integrilin wasted 3.2 ml Karson Ana for (Bolus 2mg/ml) St Sukhdev Montoya antiplatelet RN therapy 12:50:39 Fentanyl I.V. 50 mcg Karson Ana for sedation St Sukhdev Montoya MD, RN 12:56:25 Heparin Drip I.V. 1000 Karson Ana for (14323dvpeq/250 drip units/hr St Sukhdev Montoya anticoagulation D5W) MD VICENTE 12:56:27 Integrilin Drip I.V. 6 ml/hr Karson Ana for (75mg/100ml) drip St Sukhdev Montoya antiplatelet RN therapy Procedure Log Time Note 12:07:24 Informed consent obtained and on chart 12:07:29 Admit Source: Emergency department 12:07:51 ACC Patient presents with STEMI CCS Anginal Class 4--Inability to carry out any physical activity w/o angina. Angina may occur at rest. 12:08:01 Procedure Status Emergent Heart Cath (AMI). 12:08:05 Time tracking: Regular hours (M-F 7:00 - 5:00) 12:08:10 Plan of Care:Hemodynamics will remain stable., Cardiac rhythm will remain stable., Comfort level will be maintained., Respiratory function will remain adequate., Patient/ family verbilizes understanding of procedure., Procedure tolerated without complication., Recovers from procedure without complications.. 12:08:19 H&P Date Dictated: 08/10/2019 Emergent; H&P N/A. 12:08:25 ACC The patient was administered the following blood thiners within the last 24 hours: ACCPlavix 12:14:06 Diagnostic Cath Status : Emergency 12:14:38 Indication : Chest pain 12:14:43 Ana Montoya RN sent for patient. Start room use. 12:16:36 Pre-procedure instructions explained to patient. 12:16:37 Pre-op teaching completed and patient verbalized understanding. 12:16:38 Family unavailable. 12:16:40 Patient NPO since Breakfast. 12:16:46 Alarms reviewed by R. N. 12:16:46 Sharps counted by scrub and verified by R.N. 12:16:49 Left groin area was prepped with chlora-prep and draped in sterile fashion 12:16:57 Stress Test: no; N/A ? 12:20:33 Patient received from ED to CCL 2 Alert and oriented. Tansferred to table in Supine position. 12:20:34 Warm blankets applied, and feliberto hugger turned on for patient comfort. 12:20:35 Correct patient and procedure confirmed by team. 12:20:36 ECG and BP/O2 sat monitors applied to patient. 12:20:45 Is the patient allergic to Iodine/contrast media? No. 12:20:49 Was the patient premedicated? N/A 12:21:11 Patient allergic to No known allergies 12:23:45 Arrival Date: 08/10/2019 12:00:00 AM 12:23:51 Insurance Payor : Medicare 12:24:19 Patient Height : 66 inches 12:24:23 Patient Weight : 165.35 lbs 12:25:46 Lab Result : Hemoglobin 12.6 g/dl 12:25:46 Lab Result : Hematocrit 38.3 % 12:26:04 Vital chart was started 12:26:05 Full Disclosure recording started 12:26:09 Rhythm: atrial flutter 12:26:11 Baseline sample Acquired. 12:27:14 Patient diabetic? No. 12:27:16 If diabetic: On Metformin? N/A 12:27:17 ----Pre-sedation anethsthesia assessment.---- 12:27:20 Previous problem with sedation/anesthesia? No ? 12:27:21 0.9% NaCl 100 ml/hr I.V. was administered by Ana Montoya RN; used for procedure; Verbal order read back and verified. 12:27:21 Snore? No 12:27:22 Sleep apnea? No 12:27:27 Oxygen 2 l/min etCO2 Nasal cannula was administered by Ana Montoya RN; used for procedure; Verbal order read back and verified. 12:27:28 Deviated septum? No 12:27:29 Opens mouth fully? Yes 12:27:30 Sticks out tongue? Yes 12:27:32 Lidocaine 2% 20ml vial added to field was administered by Karson Buitrago MD; used for procedure; Verbal order read back and verified. 12:27:33 Airway obstruction? No ? 12:27:35 Dentures? No ? 12:27:37 Heparin Flush Bag (1000units/500ml NS) 2 bags added to field was administered by Karson Buitrago MD; used for procedure; Verbal order read back and verified. 12:27:39 Pre procedure: right dorsailis pedis pulse 1+ Palpable, but thready & weak; easily obliterated 12:28:08 Patient pain scale 6/10 CHEST TIGHTNESS. 12:28:14 IV patent on arrival in left antecubital with 0.9% NaCl at [facility]. 12:28:24 --------ALL STOP TIME OUT------ 12:28:24 Final Timeout: patient, procedure, and site verified with staff and physician. All members of the team are in agreement. 12:28:26 Left groin site verified by team. 12:28:29 Fire Safety Assessment: A--An alcohol-based skin anteseptic being used preoperatively., C--Open oxygen or nitrous oxide is being used., D--An ESU, laser, or fiber-optic light is being used. 12:28:34 Physical assessment completed. ASA score P 2 - A patient with mild systemic disease as per Karson Buitrago MD. 12:28:38 Sedation plan: IV Moderate Sedation Medication:Versed, Fentanyl 12:29:01 3b) 30-44 Moderately reduced kidney function. 12:29:03 Versed 2 mg I.V. was administered by Ana Montoya RN; for sedation; Verbal order read back and verified. 12:29:03 Maximum allowable contrast dose (3.7 X eGFR X 0.75)136 ml. 12:29:08 Procedure started. 12:29:11 Fentanyl 50 mcg I.V. was administered by Ana Montoya RN; for sedation; Verbal order read back and verified. 12:30:04 Local anesthetic to right femoral artery with Lidocaine 2% by Karson Buitrago MD.INITIAL ACCESS ONLY 12:31:23 Use device set Femoral Dx 12:31:24 ACIST Syringe (38024) opened to sterile field. 12:31:25 Bag Decanter (2002S) opened to sterile field. 12:31:25 Medline Cath Pack ([id number]) opened to sterile field. 12:31:27 ACIST Hand Control (15594) opened to sterile field. 12:31:28 ACIST Manifold (52098) opened to sterile field. 12:31:32 EMERALD Guide Wire (502-824) opened to sterile field. 12:31:39 SHEATH 6FR [place] (PJQ149) opened to sterile field. 12:31:40 A 6 Fr Short sheath was inserted into the Right Femoral artery 12:31:42 Use device set JACOB PCI 12:31:46 BMW 300cm Straight Eden 2 wire ([id number]) opened to sterile field. 12:31:48 INFLATOR Merit BasixCompak (XZ4322) opened to sterile field. 12:32:24 GUIDE 6FR JL 4.0 catheter ([id number]) opened to sterile field. 12:32:33 6 Fr JL 4 guide catheter was inserted over the wire 12:32:41 LCA angiography performed. 12:32:44 Injector settings: Ml/sec: 3, Volume: 6, 12:35:08 Plavix 600 mg P.O. was administered by Ana Montoya RN; for antiplatelet therapy; Verbal order read back and verified. 12:35:11 Proceeding to intervention. 12:35:19 BMW 300 wire advanced. 12:35:21 Wire advanced across lesion. 12:36:11 Heparin Bolus 5000 units I.V. was administered by Ana Montoya RN; for anticoagulation; Verbal order read back and verified. 12:36:20 Integrilin (Bolus 2mg/ml) 6.8 ml I.V. was administered by Ana Montoya RN; for antiplatelet therapy; Verbal order read back and verified. 12:36:24 Integrilin (Bolus 2mg/ml) 3.2 ml wasted was administered by Ana Montoya RN; for antiplatelet therapy; Verbal order read back and verified. 12:36:29 Inflate balloon Inflation number: 1 A EMERGE OTW 3.0 x 15 balloon ([id number]) was prepped and advanced across the Mid LAD , then inflated to 8 CLAYTON for 0:00 (min:sec) . 12:36:41 Inflation number: 2 The EMERGE OTW 3.0 x 15 balloon ([id number]) was reinflated across the Mid LAD , to 8 CLAYTON for 0:06 (min:sec) . 12:36:56 Inflation number: 3 The EMERGE OTW 3.0 x 15 balloon ([id number]) was reinflated across the Mid LAD , to 8 CLAYTON for 0:07 (min:sec) . 12:37:16 EKG in ER showed ST elevation, pt in ST w/ no ST elevation upon arrival to . 12:37:16 Inflation number: 4 The EMERGE OTW 3.0 x 15 balloon ([id number]) was reinflated across the Mid LAD , to 8 CLAYTON for 0:12 (min:sec) . 12:37:32 Inflation number: 5 The EMERGE OTW 3.0 x 15 balloon ([id number]) was reinflated across the Mid LAD , to 8 CLAYTON for 0:08 (min:sec) . 12:37:51 Inflation number: 6 The EMERGE OTW 3.0 x 15 balloon ([id number]) was reinflated across the Mid LAD , to 10 CLAYTON for 0:11 (min:sec) . 12:38:48 Inflation number: 7 The EMERGE OTW 3.0 x 15 balloon ([id number]) was reinflated across the Mid LAD , to 8 CLAYTON for 0:11 (min:sec) . 12:39:08 Inflation number: 8 The EMERGE OTW 3.0 x 15 balloon ([id number]) was reinflated across the Mid LAD , to 10 CLAYTON for 0:15 (min:sec) . 12:39:39 Balloon removed over the wire. 12:39:40 Wire removed. 12:39:40 Guide catheter removed. 12:39:46 A MULTIPACK Pigtail 5 Fr catheter was advanced over the wire and used for Procedure. 12:40:43 5 Fr PIGTAIL guide catheter was inserted over the wire 12:41:01 LV gram done using LOWE 12:41:02 LV hemodynamics recorded. 12:41:06 Injector settings: Ml/sec: 5, Volume: 15, 12:41:19 EF : 40 % 12:47:31 Add IABP Inserted after PCI has begun 12:50:39 Fentanyl 50 mcg I.V. was administered by Ana Montoya RN; for sedation; Verbal order read back and verified. 12:53:33 Augmentation: 1:1 per physician. 12:54:13 Quick combo pads placed on patients chest and back. 12:54:17 Defibrillator synced and charged to 200 Joules. 12:54:20 Shock delivered. 12:54:33 Patient cardioverted to atrial fibrillation. 12:55:[address] Bradley ([id number]) opened to sterile field. 12:55:58 Sheath upsized to a 8 Fr. 12:56:06 IABP 40cm balloon catheter ([id number]) opened to sterile field. 12:56:08 ACT drawn and resulted at 302 seconds. (normal therapeutic range 180-240 seconds). 12:56:08 Trigger: Pressure 12:56:18 34cc IABP inserted into the RFA . 12:56:25 Heparin Drip (72397mdzbh/250 D5W) 1000 units/hr I.V. drip was administered by Ana Montoya RN; for anticoagulation; Verbal order read back and verified. 12:56:27 Integrilin Drip (75mg/100ml) 6 ml/hr I.V. drip was administered by Ana Montoya RN; for antiplatelet therapy; Verbal order read back and verified. 13:15:42 Procedure ended.(Physican Out) 13:15:54 Fluoroscopy time 04.00 minutes. 13:15:58 Flurop Dose total: 669 13:15:58 Fluoroscopy dose: 669 mGy 13:16:03 Dose Area Product 63383 mGy/cm. 13:16:16 Contrast amount:Isovue 300 40ml. 13:16:18 Maximum allowable dose exceeded? No. 13:16:19 Sharps counted by scrub and verified by R.N. 13:16:47 Post-op/insertion site Left Femoral artery dressed using a 4 x 4 and Tegaderm. 13:16:56 Post left femerol artery:stable 13:16:58 Post Procedure Pulses reassessed and unchanged 13:17:03 Post procedure: right dorsailis pedis pulse 1+ Palpable, but thready & weak; easily obliterated. 13:17:20 Post-procedure physical assessment completed. ASA score P 2 - A patient with mild systemic disease as per Karson Buitrago MD. 13:17:28 Post procedure rhythm: atrial fibrillation 13:17:30 Estimated blood loss: 10 ml 13:18:16 Post procedure instruction explained to patient.Patient verbalizes understanding. 13:18:17 Patient needs reinforcement of post procedure teaching. 13:19:05 Procedure type changed to Cath procedure, Diagnostic procedure, LHC, LHC w/Coronaries, Intra-Aortic Balloon Pump, Sedation Charges, Moderate Sedation up to 45 minutes, PCI procedure, PTCA, PTCA Initial, Hemochron ACT Test 13:25:20 Procedure and supply charges have been captured, reviewed, submitted and are correct. 13:25:23 Procedure Complication : No complications 13:26:33 Vital chart was stopped 13:26:36 [facility] Findings: MVD- PCI performed (see procedure note) 13:26:37 Operative report dictated upon procedure completion. 13:26:37 See physician's report for complete and final results. 13:26:40 Report given to CVICU. 13:26:42 Patient transfered to CVICU with Bed. 13:26:44 Procedure ended. 13:26:44 Full Disclosure recording stopped 13:26:53 ACC-PCI Only Patient was given prescriptions, or instructed by Karson Buitrago MD to start/continue the following medications upon discharge: Plavix 13:26:55 End room use (Document Last) Intervention Summary Intervention Notes Time ActionType Lesion and Equipment Action# Pressure Duration Attributes Used 12:36:29 Inflate Mid LAD EMERGE OTW 1 8 00:00 balloon 3.0 x 15 balloon ([id number]) 12:36:41 Reinflate Mid LAD EMERGE OTW 2 8 00:06 balloon 3.0 x 15 balloon ([id number]) 12:36:56 Reinflate Mid LAD EMERGE OTW 3 8 00:07 balloon 3.0 x 15 balloon ([id number]) 12:37:16 Reinflate Mid LAD EMERGE OTW 4 8 00:12 balloon 3.0 x 15 balloon ([id number]) 12:37:32 Reinflate Mid LAD EMERGE OTW 5 8 00:08 balloon 3.0 x 15 balloon ([id number]) 12:37:51 Reinflate Mid LAD EMERGE OTW 6 10 00:11 balloon 3.0 x 15 balloon ([id number]) 12:38:48 Reinflate Mid LAD EMERGE OTW 7 8 00:11 balloon 3.0 x 15 balloon ([id number]) 12:39:08 Reinflate Mid LAD EMERGE OTW 8 10 00:15 balloon 3.0 x 15 balloon ([id number]) Device Usage Item Name Manufacture Quantity Catalog Number [facility] Minimal Lot# / Charge Number Stock Stock Serial# Code ACIST Syringe Acist 1 [id number] [id number] 131188 [id number] 20 (57874) Medical Systems Inc Bag Decanter Microtek 1 161155 42826 430019 5 () Medical Inc. Medline Cath Medline 1 [id number] 321414 73090 862502 5 Pack ([id number]) ACIST Hand Acist 1 45046 673849 890536 048360 5 Control (45873) Medical Systems Inc ACIST Manifold Acist 1 78310 657431 639116 807182 5 (82621) Medical Systems Inc EMERALD Guide Cardinal 1 502-455 266734 051039 526281 5 Wire (502-455) Health SHEATH 6FR Terumo 1 [id number] 635572 296263 172069 40 [place] (PCA120) INFLATOR Merit Merit 1 DL6348 597875 305474 770742 15 Twirl TV Medical ([id number]) GUIDE 6FR JL Medtronic 1 [id number] 280351 37605 850059 1 4.0 catheter (NV2MU31) EMERGE OTW 3.0 Sharples 1 [id number] 816121 130112 756726 5 [id number] x 15 balloon Scientific ([id number]) MULTIPACK Cardinal 1 767994 5 Pigtail 5 Fr Health catheter IABP 40cm [facility] 1 [id number] 599523 287508 688791 1 balloon SALES [facility] catheter (940354) ([id number]) SHEATH 8FR [facility] Bradley 1 058581 368079 820603 402847 5 Bradley (429572) BMW 300cm Cheng 1 1949721 093708 905251 325874 5 Straight Vascular Eden 2 wire (3968581) Signature Audit [place] Stage Time Signature Unsigned Intra-Procedure 08/10/2019 Lexis May 1:29:11 PM RT(R) Intra-Procedure 08/10/2019 Ana Montoya 1:30:43 PM RN Intra-Procedure 08/10/2019 Karson Harvey 1:31:14 PM Sukhdev CHUNG Signatures Performing Physician : Signature : Karson Buitrago MD Date : Time : Nurse : Ana Montoya RN Signature : Date : Time : Monitor : Lexis May Signature : RT Date : Time : [address] [place] [address]
[~2019-08-10 11:46] MED LIST changes: +BAYER CHEWABLE81 MG PO; +LEVAQUIN750 MG PO
[2019-08-10 12:11] LABS: BASOPHILS 0.3 % (0-2); EOSINOPHILS 2.7 % (0-7); HEMATOCRIT 38.3 % (42.0-54.0); HEMOGLOBIN 12.6 g/dL (13.5-17.5); IMMATURE GRANULOCYTES 0.8 % (0-5); LYMPHOCYTES 9.9 % (15-50); MCH 26.9 pg (26.0-34.0); MCHC 32.9 g/dL (31.0-37.0); MCV 81.7 fL (80.0-100.0); MEAN PLATELET VOLUME 9.1 fL (7.4-10.4); MONOCYTES 6.7 % (2-11); NEUTROPHILS 79.6 % (40-80); RBC 4.69 10x6/uL (4.20-6.10); RDW 14.6 % (11.5-14.5); WBC 14.8 10x3/uL (4.8-10.8)
[2019-08-10 12:15] LABS: PLATELET COUNT 376 10x3/uL (130-400)
[2019-08-10 12:19] LABS: CALC OSMOLALITY 279 mosm/kg (275-300); CALCIUM 8.6 mg/dL (8.5-10.1); CARBON DIOXIDE 20.4 mmol/L (21.0-32.0); CHLORIDE - SERUM 102 mmol/L (98-107); CREATININE - SERUM 1.5 mg/dL (0.6-1.3); GLUCOSE 125 mg/dL (74-106); POTASSIUM - SERUM 4.2 mmol/L (3.5-5.1); SODIUM 136 mmol/L (136-145); UREA NITROGEN 31 mg/dL (7-18); eGFR NON AFRICAN AMERICAN 49 mL/min (90-120)
[2019-08-10 12:21] LABS: APTT 43.5 SECONDS (22.8-39.4); INR 1.54 (0.85-1.17); PROTIME 18.4 SECONDS (11.6-15.0)
[2019-08-10 12:35] LABS: ALBUMIN 3.5 g/dL (3.4-5.0); ALKALINE PHOSPHATASE 77 U/L (30-120); ALT (SGPT) 21 U/L (10-68); BILIRUBIN - TOTAL 0.78 mg/dL (0.2-1.3); CKMB 1.1 U/L (0.0-3.6); CREATINE KINASE 64 UL (21-232); PROTEIN - SERUM 7.5 g/dL (6.4-8.2); TROPONIN-I 0.034 ng/mL (0.000-0.060)
--- NOTE | 2019-08-10 13:41 | NUR ---
PT ARRIVED TO UNIT AT THIS TIME. IABP TO LEFT GROIN 1:1. SMALL AMOUNT OF BLEEDING NOTED UNDER DRESSING. NO ACTIVE BLEEDING NOTED. POSTERIOR TIBIAL PULSE AUDIBLE WITH DOPPLER. CONNECTED TO PIPING BLOCKER. PT OPENS EYES TO VOICE. HYPOTENSIVE. WAITING ON ORDERS. WILL CONTINUE TO MONITOR.
--- NOTE | 2019-08-10 19:00 | NUR ---
PT RECIEVED WITH EYES OPEN IN BED LYING FLAT. PT WITH IAPB TO LEFT VENU. DRESSING INTACT, MINIMAL RED DRAINAGE NOTED TO DRESSING, MARKED TO OBSERVE FOR INCREASE DRAINAGE. PT ALERT AND ORIENTED. VERY TALKATIVE, WITH SAMMARINESE ACCENT. VITAL SIGNS STABLE. WILL CONTINUE TO OBSERVE.
[2019-08-11] VITALS (20 sets, daily range): BP systolic 97–132; BP diastolic 47–76; Ht 167.6 cm; Wt 73.9 kg
--- NOTE | 2019-08-11 07:00 | NUR ---
RECEIVED BEDSIDE REPORT AND ASSUMED CARE OF PATIENT. PATIENT ALERT AND ORIENTED X 4 LAYING FLAT WITH BED INCLINED. IABP TO LEFT GROIN WITH BLOOD NOTED TO DRESSING, NO HEMATOMA, RIGHT DP AND PT AUDIBLE SIGNAL WITH DOPPLER. VSS. IV 20 GA TO RIGHT AC AND IV 20 GA TO RIGHT FA WITH HEPARIN INFUSING AT 1,000 UNITS/HR (10 ML/HR) TO RIGHT FA AND DOBUTAMINE AT 2.5 MCG/KG/MIN (5.5 ML/HR). BBS - CLEAR AND EQUAL, RR - 20, SPO2 - 97% ON 1 LPM VIA NC. CM - SR WITH FREQUENT PVC'S NOTED. IABP 1:1. HEAD TO TOE ASSESSMENT COMPLETED.
--- NOTE | 2019-08-11 08:20 | NUR ---
DR. JAMES AT ROOM UPDATED AND EXAMINES PATIENT.
--- NOTE | 2019-08-11 09:00 | NUR ---
PATIENT RESTING QUIETLY, EYES CLOSED. VSS. IABP 1:1.
--- NOTE | 2019-08-11 13:09 | NUR ---
PATIENT RESTING QUIETLY, VSS. ATE APPROXIMATELY 50% OF LUNCH TRAY.
--- NOTE | 2019-08-11 13:35 | OP ---
PATIENT NAME: CARLOS ARANGO MEDICAL RECORD: [id number] :49 [facility] ADMISSION DATE:08/10/19 SURGEON: AURELIA JAMES MD DATE OF OPERATION: 08/10/2019 PROCEDURE: Left heart catheterization plus cardioversion plus intraaortic balloon pump plus PCI to LAD. DESCRIPTION OF PROCEDURE: After the left femoral artery was cannulated via modified Seldinger technique, we performed a supervisor compressed yeast films with the diagnostic catheter. This showed a totally occluded LAD in the area of previous stenting. We then exchanged for a JL4 6-Spanish and engaged the left main coronary ostium. A 300 cm Whisper wire was placed across the totally occluded LAD down this portion of vessel. Multiple balloons wounds were taken up and down just to restore BRANDON flow from 0-2 with significant thrombus burden. The patient was given Integrilin as well as heparin, started on Integrilin drip. A venogram was performed that showed basically anterior dyskinesis and an EF of 10% to 15%. Next, with the patient in atrial fibrillation/flutter, rate of 122, a cardioversion was performed, synchronized shock at 200 joules was successful in restoring atrial fibrillation to normal sinus rhythm, but with only minimal augmentation of pressures. Next, under fluoroscopic guidance, we then exchanged for an 8-Spanish sheath. An intraaortic balloon pump was placed to the fred after adequate balloon inflations were noted. The balloon pump was sutured in place. IMPRESSION: 1. Successful PTCA of the LAD with a stenosis going from 100% to no significant residual with improvement from BRANDON flow 0-2. 2. Successful cardioversion from atrial fibrillation to normal sinus rhythm. 3. Successful intraaortic balloon pump placement. Placement unfortunately is having marked difficulty pressures and significant risk for morbidity and mortality at this point. TRANSINT:[id number] Voice Confirmation ID: [id number] DOCUMENT ID: [id number] AURELIA JAMES MD at 1335 CC: [id number] DICTATION DATE: 08/10/19 1323 BLOCK SPLITTER OPERATOR: 08/10/19 1827 ADM IN [place] [id number] [place] [address]
--- NOTE | 2019-08-11 13:35 | HP ---
PATIENT: CARLOS ARANGO MEDICAL RECORD: [id number] ACCOUNT: [id number] LOCATION:[facility] : 49 ADMISSION DATE: 08/10/19 PCP: PONCHO BUTCHER MD HISTORY AND PHYSICAL EXAMINATION HISTORY OF PRESENT ILLNESS: A 74-year-old gentleman well known to me with history of 2-vessel intervention earlier this month. He had a history of atrial fibrillation, was converted to sinus rhythm as well, medical therapy, EF had improved. However, after discharge promptly quit taking his medication, presented with acute anterior myocardial infarction. He was taken to slab lifting supervisor in cardiogenic shock, he had significant risk of morbidity and mortality. PHYSICAL EXAMINATION: GENERAL: Examination is limited. NECK: He does have JVD. HEART: Irregular. There is an S3 gallop noted. LUNGS: Bilateral rales. EXTREMITIES: Show decreased perfusion. IMPRESSION: Cardiogenic shock secondary to acute stent thrombosis. However, suspect that acute stent thrombosis is secondary to medical noncompliance. Intervention, probable ballon pump support momentarily. TRANSINT:[id number] Voice Confirmation ID: [id number] DOCUMENT ID: [id number] AURELIA JAMES MD at 1335 CC: [id number] DICTATION DATE: 08/10/19 1320 BENCH WORKER HOLLOW HANDLE: 08/10/19 1336 ADM IN [place] [id number] [place] [id number]
--- NOTE | 2019-08-11 14:00 | NUR ---
PATIENT RESTING QUIETLY EYES CLOSED. VSS.
--- NOTE | 2019-08-11 15:19 | NUR ---
PATIENT REASSESSMENT COMPLETED. VSS.
--- NOTE | 2019-08-11 16:30 | NUR ---
PATIENT GIVEN BATH AND NEW LINENS. REPOSITIONED IN BED. LEFT LEG TO REMAIN STRAIGHT DUE TO IABP INSERTION TO LEFT GROIN. DRESSING TO LEFT GROIN CHANGED, CLEAN, DRY AND INTACT.
--- NOTE | 2019-08-11 16:57 | NUR ---
PATIENT GIVEN DINNER TRAY. VSS. NO NEEDS AT THIS TIME.
--- NOTE | 2019-08-11 17:36 | NUR ---
PATIENT ATE APPROXIMATELY 75% OF HIS DINNER TRAY. VSS. NO NEEDS AT THIS TIME.
--- NOTE | 2019-08-11 18:33 | NUR ---
CONTACTED DR. JAMES REGARDING PATIENT C/O HEADACHE 10/27, ORDERED NORCO 5/325 Q4H PRN FOR PAIN.
--- NOTE | 2019-08-11 19:00 | NUR ---
SHIFT ASSESSMENT COMPLETED, PT CARE ASSUMED, MONITORS ON AND WORKING,VITALS STABLE, IABP NOTED, DOPPLER LLE PULSES, RADIAL PULSES PALP. PT AWAKE AND ALERT, LEFT GROIN INCISION DRESSING CDI. SEE FLOW SHEET FOR FURTHER DETAILS, WILL CONTINUE TO OBSERVE.
[2019-08-12] VITALS (22 sets, daily range): BP systolic 103–138; BP diastolic 45–83
--- NOTE | 2019-08-12 | NUR ---
MONITORS ON AND WORKING, VITALS STABLE, PEDAL PULSES AND RADIAL PULSES CHECKED Q1. CALL LIGHT WITHIN REACH, WILL CONTINUE TO OBSERVE.
--- NOTE | 2019-08-12 03:00 | NUR ---
PT LYING IN BED RESTING. MONITORS ON AND WORKING, PT AWAKE AND ALERT, NO SIGNS/SYMPTOMS OF PAIN OR DISCOMFORT NOTED, CALL LIGHT WITHIN REACH, SEE FLOW SHEET FOR FURTHER DETAILS. WILL CONTINUE TO OBSERVE.
--- NOTE | 2019-08-12 06:00 | NUR ---
HEPARIN DRIP D/C. MONITORS ON AND WORKING, VITALS STABLE. CALL LIGHT WITHIN REACH, WILL CONTINUE TO OBSERVE.
--- NOTE | 2019-08-12 12:53 | NUR ---
Nutrition Follow-up: Good/fair PO intake. Diet: Cardiac PO intake: 50-80% Wt: 163# (08/10) Last BM: 08/09 Labs reviewed Meds reviewed -Encourage PO intake and honor food preferences within diet restrictions. -Monitor wt. -RD following.
--- NOTE | 2019-08-12 18:03 | MORECARE ---
CASE MANAGEMENT DISCHARGE SUMMARY PATIENT: CARLOS ARANGO UNIT: [id number] ADM DATE: 08/10/19 AGE: 74 : 47 SEX: M ROOM/BED: [facility] AUTHOR: STEVE JONES PHYSICIAN: REFERRING PHYSICIAN: AURELIA JAMES MD DATE OF SERVICE: 08/12/19 Discharge Plan Patient Name: CARLOS ARANGO [facility] : 1945 Planned Disposition: Home Anticipated Discharge Date: Discharge Date: Expected LOS: Initial Reviewer: [email or web address] Initial Review Date: 08/12/2019 Generated: 08/12/19 7:03 pm DCPIA - Discharge Planning Initial Assessment Updated by [email or web address]: Noreen Cassidy on 08/12/19 6:02 pm * Is the patient Alert and Oriented? Yes * How many steps to enter\exit or inside your home? * PCP [place] * Pharmacy [facility] * Preadmission Environment Home with Family * ADLs Independent * Equipment None * List name and contact numbers for known caregivers / representatives who currently or will assist patient after discharge: Gia Arango - spouse- [phone] * Verbal permission to speak to the caregivers and representatives has been obtained from the patient. Yes * Community resources currently utilized None * Additional services required to return to the preadmission environment? No * Can the patient safely return to the preadmission environment? Yes * Has this patient been hospitalized within the prior 30 days at any hospital? Yes Patient Name: CARLOS ARANGO Page [id number] at 1803 All edits/amendments must be made on the electronic document DICTATION DATE: 08/12/191802 DENTAL SERVICE TECHNICIAN: LUIS DANIEL 08/12/191802 RPT#: [id number] DC DATE: STATUS: ADM IN [facility] [address] [place] [address] END OF REPORT
--- NOTE | 2019-08-12 18:11 | MORECARE ---
CASE MANAGEMENT DISCHARGE SUMMARY PATIENT: CARLOS ARANGO UNIT: [id number] ADM DATE: 08/10/19 AGE: 74 : 47 SEX: M ROOM/BED: [facility] AUTHOR: KAREN,DOC PHYSICIAN: REFERRING PHYSICIAN: AURELIA JAMES MD DATE OF SERVICE: 08/12/19 Discharge Plan Patient Name: CARLOS ARANGO Facility: [facility]:[place] : 1945 Planned Disposition: Home Anticipated Discharge Date: Discharge Date: Expected LOS: Initial Reviewer: [email or web address] Initial Review Date: 08/12/2019 Generated: 08/12/19 7:10 pm Comments DCP- Discharge Planning Updated by [email or web address]: Noreen Cassidy on 08/12/19 5:[address] Patient Name: CARLOS ARANGO Admission Status: ER Accout number: [id number] Admission Date: 08-10-2019 : 1945 Admission Diagnosis:CHEST PAIN, UNSPECIFIED Attending: AURELIA JAMES Current LOS: 2 Anticipated DC Date: Planned Disposition: Home Primary Insurance: [employer] [facility] PF Discharge Planning Comments: CM spoke with patient to complete initial dc planning assessment. CM educated patient on the CM role and verbal consent given by patient to complete assessment. Patient lives at home with spouse where he is independent with his care. At discharge plans to return home. CM discussed availability of home health, rehab services, and medical equipment. Patient will have family to transport him home. CM asked if patient had difficulty getting Rx patient denied any barriers in getting meds. Patient denies any known discharge needs at this time. CM will continue to follow and will assist as needed with dc plans/needs. Gas Charger: Noreen Cassidy Appended by Noreen Cassidy on 08/12/2019 18:07 CDT: d/c IMM signed 08/12/19 @ 1445 DCPIA - Discharge Planning Initial Assessment Updated by [email or web address]: Noreen Cassidy on 08/12/19 6:02 pm * Is the patient Alert and Oriented? Yes * How many steps to enter\exit or inside your home? * PCP [place] * Pharmacy [facility] [address] * Preadmission Environment Home with Family * ADLs Independent * Equipment None * List name and contact numbers for known caregivers / representatives who currently or will assist patient after discharge: Gia Arango - spouse- [phone] * Verbal permission to speak to the caregivers and representatives has been obtained from the patient. Yes * Community resources currently utilized None * Additional services required to return to the preadmission environment? No * Can the patient safely return to the preadmission environment? Yes * Has this patient been hospitalized within the prior 30 days at any hospital? Yes Coverage Notice Reviewer: [email or web address] Yifan Cassidy Notice Issued Date-Time: 08/12/2019 14:45 Notice Type: IM Discharge Notice Notice Delivered To: Patient Relationship to Patient: Self Master Electrician Name: Delivery Method: HAND - Hand Delivered Beatriz Days: Prior Verbal Notification: Recipient Understood Notice: Yes Recipient Signature: Yes Med Rec Note Co-signed by Attending: Coverage Notice Comment: Last DP export: 08/12/19 5:03 p Patient Name: CARLOS ARANGO Page [id number] at 1811 All edits/amendments must be made on the electronic document DICTATION DATE: 08/12/191809 CLEAT LAYER: LUIS DANIEL 08/12/191809 RPT#: [id number] DC DATE: STATUS: ADM IN [facility] [address] [place] [address] END OF REPORT
--- NOTE | 2019-08-12 19:00 | NUR ---
REPORT RECEIVED. RECEIVED PATIENT IN BED, AWAKE ALERT AND ORIENTED X 4. ASSESSMENT COMPLETED PER FLOW SHEET WITH NO ACUTE DISTRESS OBSERVED. MONITORS CONNECTED TO PATIENT WITH ALARMS SET. VSS. CALL LIGHT IN REACH AND ABLE TO UTILIZE TO MAKE NEEDS KNOWN.
--- NOTE | 2019-08-12 21:00 | NUR ---
RESTING WITH EYES CLOSED, EASILY ROUSED AND ALERT. PM MEDS TAKEN WITHOUT DIFF. VSS. CALL LIGHT IN REACH
--- NOTE | 2019-08-12 23:00 | NUR ---
AWAKE AND ALERT. REASSESSMENT COMPLETED PER FLOW SHEET WITH NO ACUTE DISTRESS OBSERVED. VSS. CALL LIGHT IN REACH
[2019-08-13] VITALS (8 sets, daily range): BP systolic 103–126; BP diastolic 46–71
--- NOTE | 2019-08-13 01:00 | NUR ---
RESTING WITH EYES CLOSED. VSS. CALL LIGHT IN REACH
--- NOTE | 2019-08-13 03:00 | NUR ---
REASSESSMENT COMPLETED PER FLOW SHEET WITH NO ACUTE DISTRESS OBSERVED. VSS. CALL LIGHT IN REACH
--- NOTE | 2019-08-13 05:00 | NUR ---
RESTING WITH EYES CLOSED. VSS. CALL LIGHT IN REACH
[2019-08-13] MEDS ORDERED: AMIODARONE HCL200 MG PO (10:27)
--- NOTE | 2019-08-13 10:39 | MORECARE ---
CASE MANAGEMENT DISCHARGE SUMMARY PATIENT: CARLOS ARANGO UNIT: [id number] ADM DATE: 08/10/19 AGE: 74 : 47 SEX: M ROOM/BED: [facility] AUTHOR: KARENDOC PHYSICIAN: REFERRING PHYSICIAN: AURELIA JAMES MD DATE OF SERVICE: 08/13/19 Discharge Plan Patient Name: CARLOS ARANGO Facility: [facility]:[place] : 1945 Planned Disposition: Home Anticipated Discharge Date: Discharge Date: Expected LOS: Initial Reviewer: [email or web address] Initial Review Date: 08/12/2019 Generated: 08/13/19 11:39 am Comments DCP- Discharge Planning Updated by [email or web address]: Lisa Daniels on 08/13/19 9:[address] Patient Name: CARLOS ARANGO Encounter No: [id number] : 1945 Primary Insurance: [employer] [facility] Anticipated DC Date: Planned Disposition: Home External Planned Provider: : DCP follow-up note: Patient and family in agreement with discharge plan. No changes to plan. Case management will follow and assist as needed. Lisa Daniels DCP- Discharge Planning Updated by [id number]: Noreen Cassidy on 08/12/19 5:[address] Patient Name: CARLOS ARANGO Admission Status: ER Accout number: [id number] Admission Date: 08-10-2019 : 1945 Admission Diagnosis:CHEST PAIN, UNSPECIFIED Attending: AURELIA JAMES Current LOS: 2 Anticipated DC Date: Planned Disposition: Home Primary Insurance: [employer] [facility] Discharge Planning Comments: CM spoke with patient to complete initial dc planning assessment. CM educated patient on the CM role and verbal consent given by patient to complete assessment. Patient lives at home with spouse where he is independent with his care. At discharge plans to return home. CM discussed availability of home health, rehab services, and medical equipment. Patient will have family to transport him home. CM asked if patient had difficulty getting Rx patient denied any barriers in getting meds. Patient denies any known discharge needs at this time. CM will continue to follow and will assist as needed with dc plans/needs. Tubular Splitting Machine Tender: Noreen Cassidy Appended by Noreen Cassidy on 08/12/2019 18:07 CDT: d/c IMM signed 08/12/19 @ 1445 DCPIA - Discharge Planning Initial Assessment Updated by [email or web address]: Noreen Cassidy on 08/12/19 6:02 pm * Is the patient Alert and Oriented? Yes * How many steps to enter\exit or inside your home? * PCP [place] * Pharmacy [facility] * Preadmission Environment Home with Family * ADLs Independent * Equipment None * List name and contact numbers for known caregivers / representatives who currently or will assist patient after discharge: Gia Arango - spouse- [phone] * Verbal permission to speak to the caregivers and representatives has been obtained from the patient. Yes * Community resources currently utilized None * Additional services required to return to the preadmission environment? No * Can the patient safely return to the preadmission environment? Yes * Has this patient been hospitalized within the prior 30 days at any hospital? Yes Coverage Notice Reviewer: [id number] - Noreen Cassidy Notice Issued Date-Time: 08/12/2019 14:45 Notice Type: IM Discharge Notice Notice Delivered To: Patient Relationship to Patient: Self Cooler Man Name: Delivery Method: HAND - Hand Delivered Beatriz Days: Prior Verbal Notification: Recipient Understood Notice: Yes Recipient Signature: Yes Med Rec Note Co-signed by Attending: Coverage Notice Comment: Last DP export: 08/12/19 5:11 p Patient Name: CARLOS ARANGO Page [id number] at 1039 All edits/amendments must be made on the electronic document DICTATION DATE: 08/13/19 1039 MEAT TEAM LEAD: LUIS DANIEL 08/13/19 1039 RPT#: [id number] DC DATE: STATUS: ADM IN [facility] [address] [place] [address] END OF REPORT
--- NOTE | 2019-08-13 12:10 | NUR ---
1048: DISCHARGE INSTRUCTIONS REVIEWED WITH PATIENT. MED LIST GIVEN WITH NEW PRESCRIPTION OF CORDARONE AND INSTRUCTIONS TO NOT TAKE SOTOLOL. 1058: DISCHARGED HOME WITH IN PRIVAE VEHICLE. ESCORTED TO VEHICLE IN WHEELCHAIR.
--- NOTE | 2019-08-15 09:12 | MORECARE ---
CASE MANAGEMENT DISCHARGE SUMMARY PATIENT: CARLOS ARANGO UNIT: [id number] ADM DATE: 08/10/19 AGE: 74 : [birth year] SEX: M ROOM/BED: D[facility] AUTHOR: KAREN,DOC PHYSICIAN: REFERRING PHYSICIAN: AURELIA JAMES MD DATE OF SERVICE: 08/15/19 Discharge Plan Patient Name: CARLOS ARANGO Facility: [facility]:[place] : 1945 Planned Disposition: Home Anticipated Discharge Date: Discharge Date: 08/13/2019 Expected LOS: Initial Reviewer: [id number] Initial Review Date: 08/12/2019 Generated: 08/15/19 10:12 am Comments DCP- Discharge Planning Updated by [id number]: Lisa Daniels on 08/13/19 9:[address] Patient Name: CARLOS ARANGO Encounter No: [id number] : 1945 Primary Insurance: [employer] [facility] Anticipated DC Date: Planned Disposition: Home External Planned Provider: : DCP follow-up note: Patient and family in agreement with discharge plan. No changes to plan. Case management will follow and assist as needed. Lisa Daniels DCP- Discharge Planning Updated by [email or web address]: Noreen Cassidy on 08/12/19 5:[address] Patient Name: CARLOS ARANGO Admission Status: ER Accout number: [id number] Admission Date: 08-10-2019 : 1945 Admission Diagnosis:CHEST PAIN, UNSPECIFIED Attending: AURELIA JAMES Current LOS: 2 Anticipated DC Date: Planned Disposition: Home Primary Insurance: [employer] [facility] Discharge Planning Comments: CM spoke with patient to complete initial dc planning assessment. CM educated patient on the CM role and verbal consent given by patient to complete assessment. Patient lives at home with spouse where he is independent with his care. At discharge plans to return home. CM discussed availability of home health, rehab services, and medical equipment. Patient will have family to transport him home. CM asked if patient had difficulty getting Rx patient denied any barriers in getting meds. Patient denies any known discharge needs at this time. CM will continue to follow and will assist as needed with dc plans/needs. Electrical Machine Builder: Noreen Cassidy Appended by Noreen Cassidy on 08/12/2019 18:07 CDT: d/c IMM signed 08/12/19 @ 1445 DCPIA - Discharge Planning Initial Assessment Updated by [email or web address]: Noreen Cassidy on 08/12/19 6:02 pm * Is the patient Alert and Oriented? Yes * How many steps to enter\exit or inside your home? * PCP [place] * Pharmacy [facility] * Preadmission Environment Home with Family * ADLs Independent * Equipment None * List name and contact numbers for known caregivers / representatives who currently or will assist patient after discharge: Gia Arango - [facility]- [phone] * Verbal permission to speak to the caregivers and representatives has been obtained from the patient. Yes * Community resources currently utilized None * Additional services required to return to the preadmission environment? No * Can the patient safely return to the preadmission environment? Yes * Has this patient been hospitalized within the prior 30 days at any hospital? Yes Coverage Notice Reviewer: [id number] - Noreen Cassidy Notice Issued Date-Time: 08/12/2019 14:45 Notice Type: IM Discharge Notice Notice Delivered To: Patient Relationship to Patient: Self Third Rigger Name: Delivery Method: HAND - Hand Delivered Beatriz Days: Prior Verbal Notification: Recipient Understood Notice: Yes Recipient Signature: Yes Med Rec Note Co-signed by Attending: Coverage Notice Comment: Last DP export: 08/13/19 9:39 a Patient Name: CARLOS ARANGO Page [id number] at 0912 All edits/amendments must be made on the electronic document DICTATION DATE: 08/15/19911 PHARMACOGENETICIST: LUIS DANIEL 08/15/19911 RPT#: [id number] DC DATE:08/13/19 STATUS: DIS IN [facility] [address] [place] [address] END OF REPORT
== END 2019-08-13 10:58 | disposition home or self-care (01) | DRG 270 ==
LOC: D.ER 11:46 → EDSTATUS 13:20 → D.CVICU 13:43 → D.ER 16:11 → D.CVICU 16:12
PROVIDERS: Family Medicine; ADMIT Internal Medicine Interventional Cardiology; ATTEND Internal Medicine Interventional Cardiology
PROC: B2111ZZ Fluoroscopy of Multiple Coronary Arteries using Low Osmolar Contrast (ICD-10-PCS; 2019-08-10)
PROC: 5A02210 Assistance with Cardiac Output using Balloon Pump, Continuous (ICD-10-PCS; principal; 2019-08-10 12:15)
PROC: 02703ZZ Dilation of Coronary Artery, One Artery, Percutaneous Approach (ICD-10-PCS; 2019-08-10 12:15)
PROC: 4A023N7 Measurement of Cardiac Sampling and Pressure, Left Heart, Percutaneous Approach (ICD-10-PCS; 2019-08-10 12:15)
DX: I21.A9 Other myocardial infarction type (principal); R57.0 Cardiogenic shock; T82.867A Thrombosis due to cardiac prosthetic devices, implants and grafts, initial encounter; I48.91 Unspecified atrial fibrillation